=== PATIENT | male | born 1985 | race Caucasian/White ===

== ENCOUNTER 2021-08-15 12:30 | Inpatient (IN) | payer OTHER, SELFPAY ==
[2021-08-15] VITALS (9 sets, daily range): BP systolic 115–135; BP diastolic 50–77; PULSE 109–121; RESP 18–21; TEMP 37.3–39.5; O2SAT 97–100; BMI 38.9
--- NOTE | ~2021-08-15 | CT_ITS ---
EXAMINATION: CT abdomen pelvis w con EXAM DATE: 08/15/2021 15:12 INDICATION: Abdominal pain. TECHNIQUE: Spiral CT of the abdomen and pelvis was performed following intravenous injection of 100 m L Omnipaque 350. Axial, coronal and sagittal images of the abdomen and pelvis were reviewed. The do se-length product (DLP) for this examination was 1538.31 mGy-cm. The exposure was tailored according to patient size (auto mA exposure control), and iterative reconstruction (ASIR) was used as addition al dose reduction technique. There is no prior study for comparison. FINDINGS: The liver, spleen, adrenal glands and pancreas are unremarkable. Gallbladder is unremarkab le. No biliary obstruction. There is no nephrolithiasis or hydronephrosis. The prostate is unrema rkable. The bladder is unremarkable. There is no retroperitoneal or pelvic lymphadenopathy. There is mild ill-defined hazy fat surrounding the sigmoid colon with mild scattered colonic divertic brad. Could be mild uncomplicated acute diverticulitis or colitis. The appendix is normal. There is a moderate to large gastroesophageal hiatal hernia. 3 cm duodenal diverticulum. No free intraperitonea l gas. The heart is normal in size. There are no pericardial or pleural effusions. The lung bases are unremarkable. There are no osteoblastic or osteolytic lesions identified. IMPRESSION: 1. Hazy perisigmoid fat stranding, could be mild colitis or uncomplicated diverticulitis. 2. Moderate to large gastroesophageal hiatal hernia. 3. 2. Duodenal diverticulum. Reviewed, dictated and finalized at location . [facility] IMPRESSION: 1. Hazy perisigmoid fat stranding, could be mild colitis or uncomplicated dive rticulitis. 2. Moderate to large gastroesophageal hiatal hernia. 3. 2. Duodenal diverticulum.
[2021-08-15 14:41] LABS: Basophils Absolute Auto 0.1 K/mm3 (0.0-0.1); Basophils Percent Auto 0.5 % (0.2-1.2); Eosinophils Percent Auto 0.2 % (0-4.4); Hematocrit 36.4 % (42.0-52.0); Hemoglobin 10.2 g/dL (14.0-18.0); Immature Granulocyte Absolute 0.07 K/mm3 (0.00-0.031); Immature Granulocyte Percent A 0.6 % (0-0.5); Lymphocytes Absolute Auto 0.57 K/mm3 (0.9-3.2); Lymphocytes Percent Auto 4.7 % (18.3-44.2); Mean Corpuscular Volume 71.2 fl (80-100); Mean Platelet Volume 9.7 fl (7.4-10.4); Monocytes Percent Auto 8.5 % (2.6-8.5); Neutrophils Absolute Auto 10.4 K/mm3 (1.3-6.7); Neutrophils Percent Auto 85.5 % (45.5-73.1); Platelet Count Result 337 k/mm3 (150-375); Red Blood Count 5.11 M/mm3 (4.6-6.20); Red Cell Distribution Width 18.6 % (11.5-14.5); White Blood Count 12.2 K/mm3 (4.5-10.0)
[2021-08-15 14:42] LABS: Lactic Acid Reflex 1.2 mmol/L (0.7-2.1)
[2021-08-15 14:43] LABS: Alanine Aminotransferase 21 U/L (4-50); Albumin Level 4.1 g/dL (3.5-5.1); Alkaline Phosphatase 84 U/L (38-126); Anion Gap 10 mmol/L (8-16); Aspartate Amino Transferase 24 U/L (17-59); Bilirubin,Total 0.8 mg/dL (0.2-1.3); Blood Urea Nitrogen 10 mg/dL (9-20); Calcium 9.3 mg/dL (8.4-10.2); Carbon Dioxide 24 mmol/L (22-30); Chloride 102 mmol/L (98-107); Estimated CRCL calculation 109 ml/min; Estimated Glomerular Filt Rate > 60; Glucose 123 mg/dL (65-110); Lipase 146 U/L (23-300); Potassium 4.1 mmol/L (3.4-5.0); Sodium 136 mmol/L (137-145)
--- NOTE | 2021-08-15 14:52 | ED.GENADULT ---
HPI - General Adult General Chief complaint: Abdominal Pain Stated complaint: abdominal pain Time Seen by Provider: 08/15/21 14:27 Source: patient and RN notes reviewed History of Present Illness HPI narrative: Patient is a 36 y/o male complaining of periumbilical abdominal pain starting about 6 days ago. He describes her pain as aching and rates it as 8/10. There is no alleviating or exacerbating factor. There is no pain radiation. He has some nausea, but no vomiting. He also has some diarrhea. He also has a fever. Related Data Home Medications Medication Instructions Recorded Confirmed No Home Medications 08/15/21 08/15/21 Allergies Allergy/AdvReac Type Severity Reaction Status Date / Time No Known Allergies Allergy Mild Verified 02/26/17 14:40 Review of Systems Constitutional: Constitutional: Denies chills, Reports fever(s), Denies headache(s) and Denies weakness Eyes: Eyes: Denies blurry vision ENT: Denies headache(s) and Denies neck pain Cardiovascular: Cardiovascular: Denies chest pain and Denies dyspnea Respiratory: Respiratory: Denies cough and Denies dyspnea Gastrointestinal: Gastrointestinal: Reports abdominal pain, Reports diarrhea, Denies nausea and Denies vomiting Genitourinary: Genitourinary: Denies hematuria and Denies dysuria Musculoskeletal: Musculoskeletal: Denies back pain and Denies neck pain Neurologic: Denies headache(s) and Denies weakness [facility]LY [facility] Social History Social History Smoking status: Never smoker Alcohol intake: current Exam Const: General: no acute distress and well developed Orientation/consciousness: oriented to person, oriented to place, oriented to time and patient oriented x3 HENMT: Head: normocephalic Ears: external ears normal General nose exam: Normal external nose present Eyes: General: appearance normal, both eyes and all related structures Conjunctivae: conjunctivae normal Neck: Neck: normal visual inspection and full ROM Chest: Chest palpation & inspection: normal inspection of the chest and no tenderness Resp: Effort & Inspection: normal respiratory effort Auscultation: clear to auscultation bilaterally Cardio: Rate: tachycardic Rhythm: regular rhythm GI: GI Palp: No abdominal tenderness and Yes Soft to palpation Skin: General skin exam: normal color and turgor normal Neuro: General: oriented to person, oriented to place, oriented to time and patient oriented x3 Cognition (Neuro): normal cognition Extrem: General: normal to inspection, full ROM and no pedal edema Psych: Appearance: grossly normal Mental Status: mental status grossly normal Affect: normal affect Course Consultations Consultation #1: Discussed with OMAR Valencia, who agrees to admit. Date: 08/15/21 Time: 18:33 Vital Signs Vital signs: Vital Signs Temperature 39.4 C H 08/15/21 12:59 Pulse Rate 119 H 08/15/21 12:59 Respiratory Rate 20 08/15/21 12:59 Blood Pressure 135/64 08/15/21 12:59 Pulse Oximetry 99 08/15/21 12:59 Temperature 39.1 C H 08/15/21 20:24 Pulse Rate 110 H 08/15/21 20:24 Respiratory Rate 21 H 08/15/21 20:24 Blood Pressure 119/66 08/15/21 20:24 Pulse Oximetry 97 08/15/21 20:24 Medical Decision Making Vital Signs Vital Signs: Vital Signs Temperature 39.4 C H 08/15/21 12:59 Pulse Rate 119 H 08/15/21 12:59 Respiratory Rate 20 08/15/21 12:59 Blood Pressure 135/64 08/15/21 12:59 Pulse Oximetry 99 08/15/21 12:59 Temperature 39.1 C H 08/15/21 20:24 Pulse Rate 110 H 08/15/21 20:24 Respiratory Rate 21 H 08/15/21 20:24 Blood Pressure 119/66 08/15/21 20:24 Pulse Oximetry 97 08/15/21 20:24 Lab Data Result diagrams: 08/15/21 14:26 08/15/21 14:26 Labs: Lab Results 08/15/21 08/15/21 08/15/21 Range/Units 14:26 14:26 14:26 WBC 12.2 H (4.5-10.0) K/mm3 RBC 5.11 (4.6-6.20) M/mm3 Hgb 10.2 L (14
--- NOTE | 2021-08-15 15:00 | PC.NURSE ---
Called lab to add on Lip @ [id number]
[2021-08-15] MEDS: SODIUM CHLORIDE 0.9% IV 1,000 ML 999 ML IV CONT (15:01)
[2021-08-15] MEDS: ACETAMINOPHEN 325 MG TABLET 650 MG PO (15:02)
[2021-08-15 15:16] LABS: Lipase 145 U/L (23-300)
[2021-08-15 15:21] LABS: Platelet Estimate Adequate (Adequate)
[2021-08-15 15:22] LABS: Anisocytosis 1+ (NORMAL); Hypochromasia 1+ (NORMAL); Stomatocytes 1+ (NORMAL)
[2021-08-15 16:39] LABS: Add Urine Microscopic? NO; Appearance Urine Clear (Clear); Bilirubin Urine Negative (Negative); Blood Urine Negative (Negative); Color Urine Yellow (Yellow); Glucose Urine UA Negative (Negative); Ketones Urine Negative (Negative); Leukocyte Esterase Ur Negative LEU/UL (Negative); Nitrate Urine Negative (Negative); Protein Urine Negative (Negative); Urobilinogen Urine Negative mg/dL (<2.0)
[2021-08-15 17:14] LABS: Specific Grav Ur > 1.060 (1.001-1.035)
[2021-08-15] MEDS: ONDANSETRON INJ 4 MG/2 ML VIAL IV PUSH (17:54)
[2021-08-15] MEDS: KETOROLAC 30 MG/ML VIAL (*BKC) IV PUSH (17:55)
--- NOTE | 2021-08-15 17:56 | ECG_ITS ---
Measurements Intervals Stopover Rate: 120 P: 18 AL: 152 QRS: 17 QRSD: 106 T: 49 QT: 312 QTc: 441 Interpretive Statements S[address]US T[address] ELEVATION IN DIFFUSE LEADS- PROBABLY EARLY REPOLARIZATION ABNORMALITY BASELINE ARTIFACT- II, III, AVR, AVL, AVF, V2-V6 ABNORMAL ECG Electronically Signed On 08-15-2021 20:09:00 [employer] by Kg Pettit D.O.
[2021-08-15] MEDS: metroNIDAZOLE 500 MG/ISO 100ML 500 MG/100 ML BAG 100 MG IVPB (18:19)
--- NOTE | 2021-08-15 18:46 | PC.NURSE ---
Called lab to add on Trop Baseline.
--- NOTE | 2021-08-15 19:16 | PC.NURSE ---
Report received from JORDIN Herrera. Assumed care of patient at this time.
[2021-08-15] MEDS: CIPROFLOXACIN 400 MG/D5W 200ML 200 ML 200 MG IVPB (19:32)
[2021-08-15 19:35] LABS: EDCOVIDSCREEN Negative (Negative)
--- NOTE | 2021-08-15 20:38 | PM.IMHP ---
H&P: HPI History of Present Illness Date/Time: 08/15/21 20:38 this is a 36-year-old male patient who is complaining of pain around his periumbilical area. This started 6 days ago. The patient does have a history of diverticulosis. The patient has been eating seeds and nuts and he knows that he should not be eating these things. The patient had 2 loose stools today. He did have a fever as well. He has had some nausea but no vomiting. His white count was noted to be 12.12. H&H is 10.2 and 36.4. Patient was found to be negative for COVID. The patient's CT scan was read as hazy. Sigmoid fat stranding could be mild colitis or uncomplicated diverticulitis. Moderate to large gastroesophageal hiatal hernia. Duodenal diverticulum. The patient was started on Cipro and Flagyl. The patient was started on IV fluids, Tylenol, Zofran, Toradol, Flagyl and Cipro. The patient is being admitted to observation status on the date of service of 06/15/2022 Chief Complaint: Abdominal pain Review of Systems Review of Systems: All systems reviewed & are unremarkable except as noted in HPI and below Constitutional: Constitutional: Reports as per HPI and Reports no additional constitutional complaints Eyes: Eyes: Reports as per HPI and Reports no additional eye complaints ENT: Reports system reviewed and no additional complaints, except as documented and Reports Normal hearing present Cardiovascular: Cardiovascular: Reports no additional cardiovascular complaints Respiratory: Respiratory: Reports no additional respiratory complaints and Reports no additional respiratory complaints Gastrointestinal: Gastrointestinal: Reports as per HPI and Reports no additional gastrointestinal complaints Musculoskeletal: Musculoskeletal: Reports no additional musculoskeletal complaints Integumentary/Breasts: Skin/Breast: Reports system reviewed and no additional complaints, except as docu and Reports as per HPI Neurologic: Reports system reviewed and no additional complaints, except as documented, Reports as per HPI and Reports Normal hearing present Psychiatric: Psychiatric: Reports no additional psychiatric complaints and Reports as per HPI Endocrine: Endocrine: Reports no additional endocrine complaints Hematologic/Lymphatic: Hematologic/Lymphatic: Reports no additional hematologic/lymphatic complaints Allergic/Immunologic: Allergic/Immunologic: Reports no additional allergic/immunologic complaints PMFSH Past Medical History Medical History (Updated 08/15/21 @ 23:28 by Annie Hunter NP) Diverticulosis Surgical History Surgical History (Updated 08/15/21 @ 23:28 by Annie Hunter NP) History of tonsillectomy Family History Family History Father Asthma Chronic obstructive pulmonary disease Hypertension Mother Hypertension Social History Social History (Updated 08/15/21 @ 23:30 by Annie Hunter NP) Social History: The patient is lifelong nonsmoker. He lives with his significant other. He has 2 sons. He does not have a durable power transactional attorney for healthcare. He drinks socially. He works at [employer]. He does not use any marijuana or illicit drugs. Code status full code Smoking status: Never smoker Alcohol intake: never Substance use: never Spiritual care concerns: No Meds Home Medications and Allergies Home Medications Medication Instructions Recorded Confirmed Type No Home Medications 08/15/21 08/15/21 History Allergies Allergy/AdvReac Type Severity Reaction Status Date / Time No Known Allergies Allergy Mild Verified 02/26/17 14:40 Vital Signs Vital Signs - 24 hr 08/15/21 12:59 08/15/21 14:23 08/15/21 15:48 Temperature 39.4 C H 37.3 C Pulse Rate 119 H 121 H Respiratory Rate 20 18 Blood Pressure 135/64 125/77 Pulse Oximetry 99 98 08/15/21 15:59 08/15/21 17:31 08/15/21 18:45 Temperature 39.4 C
[2021-08-15 20:59] LABS: Troponin I < 0.012 ng/mL (0.000-0.034)
[2021-08-15] MEDS: SODIUM CHLORIDE 0.9% IV 1,000 ML 125 ML IV CONT (20:59)
--- NOTE | 2021-08-15 21:07 | ADMGEN ---
This patient, Isiah Franco, was admitted to Medical Room 249-01. Patient/family oriented to hospital policies and general routines including ID bracelet, bed and alarms, visiting hours, pain management, procedures, bathroom and other care routines, personal items, smoking policy, room service/diet, and visiting hours. Information on how to activate the Rapid Response Team has been discussed. Patient/Family are encouraged to report perceived risks to care and to ask questions if they do not understand what they are told or what they should do.
[2021-08-16] MEDS: metroNIDAZOLE 500 MG/ISO 100ML 500 MG/100 ML BAG 100 MG IVPB ×3 (02:02→17:53)
[2021-08-16 02:56] LABS: IFOB Positive Control Positive; Immunochemical Fecal Occult Bl Positive (N)
[2021-08-16] MEDS: ONDANSETRON INJ 4 MG/2 ML VIAL IV PUSH ×5 (03:08→22:32)
[2021-08-16 05:40] LABS: Hematocrit 31.1 % (42.0-52.0); Mean Corpuscular HGB Conc 28.9 g/dl (32-36); Mean Corpuscular Hemoglobin 20.3 pg (26-34); Mean Platelet Volume 9.7 fl (7.4-10.4); Platelet Count Result 306 k/mm3 (150-375); Red Blood Count 4.44 M/mm3 (4.6-6.20); Red Cell Distribution Width 18.5 % (11.5-14.5); White Blood Count 14.2 K/mm3 (4.5-10.0)
[2021-08-16 05:59] LABS: Alanine Aminotransferase 16 U/L (4-50); Albumin Level 3.5 g/dL (3.5-5.1); Alkaline Phosphatase 66 U/L (38-126); Anion Gap 10 mmol/L (8-16); Aspartate Amino Transferase 19 U/L (17-59); Bilirubin,Total 1.2 mg/dL (0.2-1.3); Blood Urea Nitrogen 15 mg/dL (9-20); Calcium 8.3 mg/dL (8.4-10.2); Carbon Dioxide 22 mmol/L (22-30); Chloride 103 mmol/L (98-107); Estimated CRCL calculation 85 ml/min; Estimated Glomerular Filt Rate 57; Glucose 125 mg/dL (65-110); Lactate Dehydrogenase 340 U/L (313-618); Lipase 47 U/L (23-300); Magnesium 1.4 mg/dL (1.6-2.3); Potassium 3.6 mmol/L (3.4-5.0); Sodium 135 mmol/L (137-145)
[2021-08-16 06:00] VITALS: BP 123/72; PULSE 107; RESP 21; TEMP 36.4; O2SAT 100
[2021-08-16 06:10] LABS: Lactic Acid Reflex 0.8 mmol/L (0.7-2.1)
[2021-08-16] MEDS: SODIUM CHLORIDE 0.9% IV 1,000 ML 125 ML IV CONT (06:17)
[2021-08-16 06:46] LABS: Thyroid Stimulating Hormone Reflex 0.631 uIU/mL (0.465-4.68)
[2021-08-16 07:00] LABS: Band Neutrophils Percent 17 % (0-6); Microcytosis 2+ (NORMAL); Monocytes Absolute Manual 0.99 K/mm3 (0.1-0.90); Monocytes Percent Manual 7 % (3-9); Neutrophils Percent Manual 64 % (46-73); Platelet Estimate Adequate (Adequate); Total Cells Counted 100
[2021-08-16 07:01] LABS: Hypochromasia 1+ (NORMAL)
[2021-08-16] MEDS: POTASSIUM CHLORIDE 20 MEQ TABLET 40 MEQ PO (09:03)
[2021-08-16] MEDS: ACETAMINOPHEN 325 MG TABLET 650 MG PO ×4 (09:04→23:56)
[2021-08-16] MEDS: CIPROFLOXACIN 400 MG/D5W 200ML 200 ML 200 MG IVPB ×2 (09:05→22:16)
[2021-08-16 09:14] LABS: Iron 21 ug/dL (49-181)
[2021-08-16 09:22] LABS: Transferrin 268 mg/dL (206-381)
[2021-08-16 09:25] LABS: Percent Iron Saturation 6 % (20-50)
[2021-08-16] MEDS: MAGNESIUM SULF 4 GM/WATER100ML 4 GM/100 ML BAG IVPB (10:19)
[2021-08-16] MEDS: PANTOPRAZOLE SODIUM IV 40 MG VIAL IV PUSH ×2 (10:19→22:17)
--- NOTE | 2021-08-16 12:18 | WPDGICN ---
Assessment and Plan Assessment and plan (1) Diverticulitis: Code(s): K57.92 - Diverticulitis of intestine, part unspecified, without perforation or abscess without bleeding Status: Acute Assessment and Plan: here with possible colitis vs diverticulitis (denies previous episode) stool sample pending started on iv antibiotics tolerating liquid diet (2) Sepsis: Qualifiers: Sepsis acute organ dysfunction status: unspecified Sepsis type: sepsis due to unspecified organism Qualified Code(s): A41.9 - Sepsis, unspecified organism Code(s): A41.9 - Sepsis, unspecified organism Status: Acute Assessment and Plan: here with elevated wbc, colitis and fever will monitor and treat (3) Iron deficiency anemia: Code(s): D50.9 - Iron deficiency anemia, unspecified Status: Acute Assessment and Plan: new finding, never had scopes will arrange egd and colonoscopy probably in 3-4 weeks after resolution of acute inflammation patient denies overt gib but noted FOBT + (also could be from active colon infection) (4) Occult blood in stools: Code(s): R19.5 - Other fecal abnormalities Status: Acute (5) Abnormal CT scan, colon: Code(s): R93.3 - Abnormal findings on diagnostic imaging of other parts of digestive tract Status: Acute Assessment and Plan: reviewed (6) Leukocytosis: Code(s): D72.829 - Elevated white blood cell count, unspecified Status: Acute Assessment and Plan: on abx GI Consult Note Consult date/time: 08/16/21 12:19 Reason for consult: diverticulitis vs colitis, FOBT + HPI: Isiah Franco is a 36 year old male with lower abdominal pain for last 5-6 days describe as moderate intensity, also bloating sensation and mucus in stool with nausea but no vomiting, finally came to ER because more pain and fever 103F, also noted more diarrhea day of admission. Denies sick contacts or similar GI problem. CT scan a/p reviewed and showed hazy perisigmoid fat stranding, could be mild colitis or uncomplicated diverticulitis, moderate to large gastroesophageal hiatal hernia. Never had scopes. Blood work showed white count 12.12, hb 10.2. Patient was found to be negative for COVID. Started on antibiotics, pending stool samples. Review of Systems Constitutional: Constitutional: Reports chills Comments: fever Eyes: Eyes: Denies blurry vision ENT: Reports Normal hearing present Cardiovascular: Cardiovascular: Denies chest pain Respiratory: Respiratory: Denies dyspnea Gastrointestinal: Gastrointestinal: Reports abdominal pain and Reports diarrhea Genitourinary: Genitourinary: Denies dysuria Musculoskeletal: Musculoskeletal: Denies neck pain Integumentary/Breasts: Skin/Breast: Denies dry skin Neurologic: Denies headache(s) Psychiatric: Psychiatric: Denies behavioral changes [facility] Past Medical History Medical History (Updated 08/16/21 @ 13:04 by Leonardo Slade MD) Abnormal CT scan, colon Diverticulosis Iron deficiency anemia Leukocytosis Occult blood in stools Surgical History Surgical History (Updated 08/15/21 @ 23:28 by Annie Hunter NP) History of tonsillectomy Family History Family History Father Asthma Chronic obstructive pulmonary disease Hypertension Mother Hypertension Social History Social History (Updated 08/15/21 @ 23:30 by Annie Hunter NP) Social History: The patient is lifelong nonsmoker. He lives with his significant other. He has 2 sons. He does not have a durable power managing attorney for healthcare. He drinks socially. He works at [employer]. He does not use any marijuana or illicit drugs. Code status full code Smoking status: Never smoker Alcohol intake: never Substance use: never Spiritual care concerns: No Meds Home Medications and Allergies Home Medications Medi
--- NOTE | 2021-08-16 13:05 | PM.IMPN ---
Progress Note: A&P Assessment and Plan (1) Diverticulitis: Code(s): K57.92 - Diverticulitis of intestine, part unspecified, without perforation or abscess without bleeding Status: Acute Assessment and Plan: Patient is a 36-year-old male with a history of diverticulosis, who presented to the emergency room with periumbilical abdominal pains, with gradually worsening symptoms over the last 6 days with associated fevers. Initial vitals showed blood pressure 135/64, tachycardic heart rate 119, febrile 102.9F, normal oxygenation on room air. Initial labs showed leukocytosis at 12,200, elevated neutrophils at 85%. Microcytic anemia with a hemoglobin of 10, hematocrit 36%. Normal renal function. Lactic acid normal. LFTs normal. Troponin normal. Lipase normal. TSH, B12, folic acid normal. Positive occult blood. Negative COVID PCR. Normal urinalysis. CT abdomen pelvis showed Hazy perisigmoid fat stranding, could be mild colitis or uncomplicated diverticulitis. Moderate to large gastroesophageal hiatal hernia. Duodenal diverticulum. Patient was admitted to the hospital for acute diverticulitis and started on IV Flagyl and Cipro. Patient states he is feeling slightly better today, Day #1 Cipro and Flagyl Stools are improving-stool cultures are pending He is eating better so I discontinued IV fluids GI was consulted due to microcytic anemia, positive blood in stool, diverticulitis and moderate to severe hiatal hernia Will continue IV PPI 40 mg q.12 Continue monitoring. Appreciate GI input. (2) Sepsis: Code(s): A41.9 - Sepsis, unspecified organism Status: Acute Assessment and Plan: Patient meets criteria for sepsis with fevers, tachycardia, leukocytosis, in the setting of diverticulitis. Continue monitoring vitals and IV abx. (3) Iron deficiency anemia: Code(s): D50.9 - Iron deficiency anemia, unspecified Status: Acute Assessment and Plan: Patient found to have iron deficiency anemia with a hemoglobin of 9, hematocrit 31%. Positive Hemoccult stool. % saturation 6%, low ferritin. GI was consulted. Continue monitoring H&H and transfuse if less than 7. (4) Occult blood in stools: Code(s): R19.5 - Other fecal abnormalities Status: Acute Assessment and Plan: GI on board and appreciate the recommendations. (5) Hypomagnesemia: Code(s): E83.42 - Hypomagnesemia Status: Acute Assessment and Plan: Low at 1.4. Given 4 g of IV magnesium. Most likely due to IV fluid hydration. Time Spent With Patient Time with patient: 25 - 35 minutes Subjective Date/time seen: 08/16/21 13:05 Interval history: Date of Service 08/16/21: Patient reports feeling slightly better. States his diarrhea is improving minimally with about 5-6 stools before noon. Denies any more fevers at this time. He has been eating a full liquid diet and does become slightly nauseous after eating had episode of vomiting after lunch. He is otherwise tolerating diet without any issues. Denies any chest pain, shortness of breath, cough, leg swelling, calf pain, or any other symptoms at this time. Review of Systems Review of Systems: All systems reviewed & are unremarkable except as noted in HPI and below Exam Narrative: General: 36-year-old man sitting up in bed watching TV. Appears comfortable. In no acute distress. Skin: No jaundice or cyanosis. Good skin turgor. Neck: Full range of motion. Supple. Respiratory: Lungs are clear to auscultation bilaterally. No bony chest wall tenderness. Cardiovascular: The heart has a regular rate and rhythm without murmur. Lower extremities: No lower extremity edema. Distal pulses are easily palpated
[2021-08-16 14:00] VITALS: BP 127/75; PULSE 107; RESP 14; TEMP 38.4; O2SAT 96
[2021-08-16 15:55] VITALS: TEMP 36.8
[2021-08-16 19:00] VITALS: TEMP 37.3
[2021-08-16 20:20] VITALS: PULSE 100; RESP 14; O2SAT 99
[2021-08-16 21:09] VITALS: BP 127/79; PULSE 100; RESP 14; TEMP 37.3; O2SAT 99
[2021-08-17] MEDS: metroNIDAZOLE 500 MG/ISO 100ML 500 MG/100 ML BAG 100 MG IVPB ×2 (03:04→11:17)
[2021-08-17 05:13] LABS: Basophils Absolute Auto 0.1 K/mm3 (0.0-0.1); Basophils Percent Auto 0.5 % (0.2-1.2); Eosinophils Percent Auto 0.2 % (0-4.4); Hematocrit 33.8 % (42.0-52.0); Hemoglobin 9.4 g/dL (14.0-18.0); Immature Granulocyte Absolute 0.11 K/mm3 (0.00-0.031); Lymphocytes Absolute Auto 0.87 K/mm3 (0.9-3.2); Lymphocytes Percent Auto 7.7 % (18.3-44.2); Mean Corpuscular HGB Conc 27.8 g/dl (32-36); Mean Corpuscular Hemoglobin 19.9 pg (26-34); Mean Corpuscular Volume 71.6 fl (80-100); Mean Platelet Volume 9.8 fl (7.4-10.4); Monocytes Absolute Auto 1.2 K/mm3 (0.1-0.6); Monocytes Percent Auto 10.2 % (2.6-8.5); Neutrophils Absolute Auto 9.1 K/mm3 (1.3-6.7); Neutrophils Percent Auto 80.4 % (45.5-73.1); Platelet Count Result 279 k/mm3 (150-375); Red Blood Count 4.72 M/mm3 (4.6-6.20); Red Cell Distribution Width 18.3 % (11.5-14.5); White Blood Count 11.3 K/mm3 (4.5-10.0)
[2021-08-17 05:47] LABS: Anion Gap 9 mmol/L (8-16); Blood Urea Nitrogen 10 mg/dL (9-20); Calcium 8.3 mg/dL (8.4-10.2); Carbon Dioxide 23 mmol/L (22-30); Chloride 104 mmol/L (98-107); Estimated CRCL calculation 118 ml/min; Estimated Glomerular Filt Rate > 60; Glucose 121 mg/dL (65-110); Magnesium 2.5 mg/dL (1.6-2.3); Potassium 3.9 mmol/L (3.4-5.0); Sodium 136 mmol/L (137-145)
[2021-08-17 06:00] VITALS: BP 123/71; PULSE 100; RESP 16; TEMP 36.4; O2SAT 97
[2021-08-17] MEDS: CIPROFLOXACIN 400 MG/D5W 200ML 200 ML 200 MG IVPB ×2 (08:29→20:19)
[2021-08-17] MEDS: PANTOPRAZOLE SODIUM IV 40 MG VIAL IV PUSH ×2 (08:29→20:19)
[2021-08-17] MEDS: ONDANSETRON INJ 4 MG/2 ML VIAL IV PUSH (08:40)
--- NOTE | 2021-08-17 13:49 | WPDGIPROGNO ---
Progress Note: A&P Assessment and Plan (1) Salmonellosis: Code(s): A02.9 - Salmonella infection, unspecified Status: Acute Assessment and Plan: stool culture + Salmonella already on cipro, will discontinue flagyl he is feeling better with less diarrhea (2) Diarrhea: Code(s): R19.7 - Diarrhea, unspecified Status: Acute Assessment and Plan: slowly improving, still some pain (3) Sepsis: Code(s): A41.9 - Sepsis, unspecified organism Status: Acute Assessment and Plan: resolved, wbc trending down (4) Abnormal CT scan, colon: Code(s): R93.3 - Abnormal findings on diagnostic imaging of other parts of digestive tract Status: Acute (5) Iron deficiency anemia: Code(s): D50.9 - Iron deficiency anemia, unspecified Status: Acute Assessment and Plan: will need egd and colonoscopy, probably in 4 weeks after fully recovered Subjective Date/time seen: 08/17/21 13:49 Interval history: pain is improving and also less diarrhea but still not back to normal. Review of Systems Review of Systems: All systems reviewed & are unremarkable except as noted in HPI and below Exam Const: General: comfortable and no acute distress HENMT: General nose exam: Normal nares present Eyes: General: appearance normal, both eyes and all related structures Neck: Neck: no JVD Resp: Auscultation: clear to auscultation bilaterally Cardio: Rate: regular rate Rhythm: regular rhythm GI: Inspection: non-distended GI Palp: Yes Soft to palpation Auscultation: normal bowel sounds Other: less tender today Skin: General skin exam: normal color Neuro: General: gait normal Speech: normal speech Extrem: General: normal to inspection Psych: Mental Status: mental status grossly normal Objective Data Vital Signs Vital Signs: Vital Signs - 24 hr 08/16/21 14:00 08/16/21 15:55 08/16/21 19:00 Temperature 101.1 F H 98.3 F 99.1 F Pulse Rate 107 H Respiratory Rate 14 Blood Pressure 127/75 Pulse Oximetry 96 08/16/21 20:20 08/16/21 21:09 08/17/21 06:00 Temperature 99.1 F 97.5 F L Pulse Rate 100 100 100 Respiratory Rate 14 14 16 Blood Pressure 127/79 123/71 Pulse Oximetry 99 99 97 Intake/Output Intake/Output: Intake & Output 08/14/21 08/15/21 08/16/21 08/17/21 23:59 23:59 23:59 23:59 Intake Total 1300 4230 1935 Output Total 500 Balance 1300 3730 1935 Meds/Results Medications: Active Medications Generic Name Dose Route Start Last Admin Trade Name Freq PRN Reason Stop Dose Admin Acetaminophen 650 mg 08/16/21 08:30 08/16/21 23:56 Acetaminophen 325 Mg Tablet PO 650 mg Q4H PRN Administration Mild Pain (1-3) or Fever Ciprofloxacin/Dextrose 200 mls @ 200 mls/hr 08/16/21 09:00 08/17/21 09:29 Cipro 400 Mg/D5w 200 Ml IVPB Infused Q12H DEVYN Infusion Metronidazole 500 mg in 100 mls @ 100 mls/hr 08/16/21 02:00 08/17/21 12:20 Flagyl 500 Mg/Iso Soln 100 Ml IVPB Infused Q8H DEVYN Infusion Iron Sucrose 300 mg/ Sodium 115 mls @ 76.667 mls/hr 08/17/21 09:00 08/17/21 11:20 Chloride IVPB 08/19/21 09:01 Infused QAM DEVYN Infusion Ondansetron HCl 4 mg 08/15/21 23:17 08/17/21 08:40 Ondansetron Inj 4 Mg/2 Ml Vial IV PUSH 4 mg Q4H PRN Administration Nausea And Vomiting Pantoprazole Sodium 40 mg 08/16/21 09:00 08/17/21 08:29 Pantoprazole Sodium Iv 40 Mg Vial IV PUSH 40 mg Q12HR DEVYN Administration Radiology Results: ITS Impressions Abdomen/Pelvis CT 08/15/21 15:13 IMPRESSION: 1. Hazy perisigmoid fat stranding, could be mild colitis or uncomplicated diverticulitis. 2. Moderate to large gastroesophageal hiatal hernia. 3. 2. Duodenal diverticulum. Labs Labs: Laboratory Results - last 24 hr 08/17/21 08/17/21 04:38 04:38 WBC 11.3 H RBC 4.72 Hgb 9.4 L Hct 33.8 L MCV 71.6 L MCH 19.9 L MCHC 27.8 L RDW 18.3 H Plt Count 279
[2021-08-17 14:05] VITALS: BP 119/77; PULSE 99; RESP 16; TEMP 36.3; O2SAT 97
--- NOTE | 2021-08-17 14:48 | PM.IMPN ---
Progress Note: A&P Assessment and Plan (1) Diverticulitis: Code(s): K57.92 - Diverticulitis of intestine, part unspecified, without perforation or abscess without bleeding Status: Acute Assessment and Plan: Patient is a 36-year-old male with a history of diverticulosis, who presented to the emergency room with periumbilical abdominal pains, with gradually worsening symptoms over the last 6 days with associated fevers. Initial vitals showed blood pressure 135/64, tachycardic heart rate 119, febrile 102.9F, normal oxygenation on room air. Initial labs showed leukocytosis at 12,200, elevated neutrophils at 85%. Microcytic anemia with a hemoglobin of 10, hematocrit 36%. Normal renal function. Lactic acid normal. LFTs normal. Troponin normal. Lipase normal. TSH, B12, folic acid normal. Positive occult blood. Negative COVID PCR. Normal urinalysis. CT abdomen pelvis showed Hazy perisigmoid fat stranding, could be mild colitis or uncomplicated diverticulitis. Moderate to large gastroesophageal hiatal hernia. Duodenal diverticulum. Patient was admitted to the hospital for acute diverticulitis and started on IV Flagyl and Cipro. Patient states he is feeling slightly better today, Day #2 Cipro and Flagyl Stool cultures- showing Growth of Salmonella. WBC Smear not detected. Shiga Toxins Ecoli not detected. Campylobacter not detected. GI was consulted and agree with treatment at this time, will do EGD.Colonoscopy outpatient in 3-4 wks. Believe +IFOB was due to acute infection/inflammation/diarrhea. Will continue IV PPI 40 mg q.12 Continue monitoring. Appreciate GI input. (2) Salmonellosis: Code(s): A02.9 - Salmonella infection, unspecified Status: Acute Assessment and Plan: Positive growth with stool cultures. Continue Cipro IV and at discharge. GI Discontinued IV Flagyl. (3) Sepsis: Code(s): A41.9 - Sepsis, unspecified organism Status: Acute Assessment and Plan: Patient meets criteria for sepsis with fevers, tachycardia, leukocytosis, in the setting of diverticulitis. Continue monitoring vitals and IV abx. (4) Iron deficiency anemia: Code(s): D50.9 - Iron deficiency anemia, unspecified Status: Acute Assessment and Plan: Patient found to have iron deficiency anemia with a hemoglobin of 9, hematocrit 31%. Positive Hemoccult stool. % saturation 6%, low ferritin. GI was consulted and believes it is from acute inflammation/infection. (5) Occult blood in stools: Code(s): R19.5 - Other fecal abnormalities Status: Acute Assessment and Plan: GI on board and appreciate the recommendations. (6) Hypomagnesemia: Code(s): E83.42 - Hypomagnesemia Status: Acute Assessment and Plan: Normal today. From diarrhea. Time Spent With Patient Time with patient: 25 - 35 minutes Subjective Date/time seen: 08/17/21 14:48 Interval history: Date of Service 08/17/21: Patient reports feeling slightly better. States his diarrhea is improving. Denies any more fevers at this time. He has been eating a full liquid diet and does become slightly nauseous, no vomiting. He is otherwise tolerating diet without any issues. Denies any chest pain, shortness of breath, cough, leg swelling, calf pain, or any other symptoms at this time. Review of Systems Review of Systems: All systems reviewed & are unremarkable except as noted in HPI and below Exam Narrative: General: 36-year-old man sitting up in bed watching TV. Appears comfortable. In no acute distress. Skin: No jaundice or cyanosis. Good skin turgor. Neck: Full range of motion. Supple. Respiratory: Lungs are
[2021-08-17] MEDS: ACETAMINOPHEN 325 MG TABLET 650 MG PO (17:42)
[2021-08-17 21:49] VITALS: BP 127/67; PULSE 88; RESP 16; TEMP 36.9; O2SAT 97
[2021-08-18 05:55] VITALS: BP 119/72; PULSE 83; RESP 16; TEMP 36.5; O2SAT 99
[2021-08-18 06:39] LABS: Basophils Absolute Auto 0.1 K/mm3 (0.0-0.1); Basophils Percent Auto 0.8 % (0.2-1.2); Eosinophils Absolute Auto 0.2 K/mm3 (0-0.3); Eosinophils Percent Auto 1.8 % (0-4.4); Hematocrit 30.4 % (42.0-52.0); Hemoglobin 8.5 g/dL (14.0-18.0); Immature Granulocyte Percent A 2.2 % (0-0.5); Lymphocytes Absolute Auto 1.17 K/mm3 (0.9-3.2); Lymphocytes Percent Auto 12.6 % (18.3-44.2); Mean Corpuscular Volume 71.7 fl (80-100); Mean Platelet Volume 10.1 fl (7.4-10.4); Monocytes Absolute Auto 1.1 K/mm3 (0.1-0.6); Monocytes Percent Auto 11.3 % (2.6-8.5); Neutrophils Absolute Auto 6.6 K/mm3 (1.3-6.7); Neutrophils Percent Auto 71.3 % (45.5-73.1); Platelet Count Result 285 k/mm3 (150-375); Red Blood Count 4.24 M/mm3 (4.6-6.20); Red Cell Distribution Width 18.4 % (11.5-14.5); White Blood Count 9.3 K/mm3 (4.5-10.0)
[2021-08-18 06:49] LABS: Anion Gap 8 mmol/L (8-16); Blood Urea Nitrogen 8 mg/dL (9-20); Calcium 8.6 mg/dL (8.4-10.2); Carbon Dioxide 26 mmol/L (22-30); Chloride 104 mmol/L (98-107); Estimated CRCL calculation 118 ml/min; Estimated Glomerular Filt Rate > 60; Glucose 111 mg/dL (65-110); Potassium 3.5 mmol/L (3.4-5.0); Sodium 138 mmol/L (137-145)
[2021-08-18 07:29] LABS: Hemoglobin A1C 5.6 % (<5.7)
[2021-08-18] MEDS: CIPROFLOXACIN 400 MG/D5W 200ML 200 ML 200 MG IVPB (09:04)
[2021-08-18] MEDS: PANTOPRAZOLE SODIUM IV 40 MG VIAL IV PUSH (09:05)
--- NOTE | 2021-08-18 11:21 | PM.DS ---
DS: Admitting Diagnosis Discharge Date 08/18/21 Admitting Diagnosis Abd pain/diarrhea DS: Discharge Diagnosis Discharge Diagnosis (1) Diverticulitis: Code(s): K57.92 - Diverticulitis of intestine, part unspecified, without perforation or abscess without bleeding Status: Acute Assessment and Plan: Patient is a 36-year-old male with a history of diverticulosis, who presented to the emergency room with periumbilical abdominal pains, with gradually worsening symptoms over the last 6 days with associated fevers. Initial vitals showed blood pressure 135/64, tachycardic heart rate 119, febrile 102.9F, normal oxygenation on room air. Initial labs showed leukocytosis at 12,200, elevated neutrophils at 85%. Microcytic anemia with a hemoglobin of 10, hematocrit 36%. Normal renal function. Lactic acid normal. LFTs normal. Troponin normal. Lipase normal. TSH, B12, folic acid normal. Positive occult blood. Negative COVID PCR. Normal urinalysis. CT abdomen pelvis showed Hazy perisigmoid fat stranding, could be mild colitis or uncomplicated diverticulitis. Moderate to large gastroesophageal hiatal hernia. Duodenal diverticulum. Patient was admitted to the hospital for acute diverticulitis and started on IV Flagyl and Cipro. Patient states he is feeling slightly better today, Day #3 Cipro and Flagyl Stool cultures- showing Growth of Salmonella. WBC Smear not detected. Shiga Toxins Ecoli not detected. Campylobacter not detected. GI was consulted and agree with treatment at this time, will do EGD.Colonoscopy outpatient in 3-4 wks. Believe +IFOB was due to acute infection/inflammation/diarrhea. GI discontinued IV Flagyl and recommends only Ciprofloxacin for discharge. Will discharge with total of 10 days of Cipro and probiotic to prevent diarrhea associate with antibiotic use. Follow up with PCP and GI. Return to ER warnings given. Patient understands and agrees the plan all questions answered. (2) Salmonellosis: Code(s): A02.9 - Salmonella infection, unspecified Status: Acute Assessment and Plan: Positive growth with stool cultures. Continue Cipro IV and at discharge. (3) Sepsis: Code(s): A41.9 - Sepsis, unspecified organism Status: Acute Assessment and Plan: Patient meets criteria for sepsis with fevers, tachycardia, leukocytosis, in the setting of diverticulitis. Vitals stable. (4) Iron deficiency anemia: Code(s): D50.9 - Iron deficiency anemia, unspecified Status: Acute Assessment and Plan: Patient found to have iron deficiency anemia with a hemoglobin of 9, hematocrit 31%. Positive Hemoccult stool. % saturation 6%, low ferritin. GI was consulted and believes it is from acute inflammation/infection. Will continue PO Ferrous Sulfate upon discharge and follow up with PCP and GI in regards to continue this medication or not. (5) Occult blood in stools: Code(s): R19.5 - Other fecal abnormalities Status: Acute Assessment and Plan: GI was consulted and believes it is from acute inflammation/infection. (6) Hypomagnesemia: Code(s): E83.42 - Hypomagnesemia Status: Acute Assessment and Plan: Normal today. From diarrhea. DS: Summary Hospital Course Hospital Course: See above Status at Discharge Cognitive/behavioral status at discharge: Stable, improved. Time Spent with Patient Time attestation: Total time spent providing and/or coordinating discharge services: 40 Time spent: Greater than 30 minutes Exam Narrative: General: 36-year-old man sitting up in bed watching TV. Appears comfortable. In no acute distress. Skin: No jaundice or cyanos
--- NOTE | 2021-08-18 11:56 | WPDGIPROGNO ---
Progress Note: A&P Assessment and Plan (1) Salmonellosis: Code(s): A02.9 - Salmonella infection, unspecified Status: Acute Assessment and Plan: stool culture + Salmonella already on cipro, he can go home and complete oral route, tolerating diet he is feeling better with less diarrhea (2) Diarrhea: Code(s): R19.7 - Diarrhea, unspecified Status: Acute Assessment and Plan: slowly improving, still some pain from salmonella (3) Sepsis: Code(s): A41.9 - Sepsis, unspecified organism Status: Acute Assessment and Plan: resolved, wbc today is normal (4) Abnormal CT scan, colon: Code(s): R93.3 - Abnormal findings on diagnostic imaging of other parts of digestive tract Status: Acute (5) Iron deficiency anemia: Code(s): D50.9 - Iron deficiency anemia, unspecified Status: Acute Assessment and Plan: will need egd and colonoscopy- will set up as outpatient 4-6 weeks Subjective Date/time seen: 08/18/21 11:56 Interval history: he is feeling better with less frequent diarrhea, abdominal pain better. Review of Systems Review of Systems: All systems reviewed & are unremarkable except as noted in HPI and below Exam Const: General: comfortable and no acute distress HENMT: General nose exam: Normal nares present Eyes: General: appearance normal, both eyes and all related structures Neck: Neck: no JVD Resp: Auscultation: clear to auscultation bilaterally Cardio: Rate: regular rate Rhythm: regular rhythm GI: Inspection: non-distended GI Palp: Yes Soft to palpation and No Guarding due to palpation present (GI) Auscultation: normal bowel sounds Skin: General skin exam: normal color Neuro: General: gait normal Speech: normal speech Extrem: General: normal to inspection Psych: Mental Status: mental status grossly normal Objective Data Vital Signs Vital Signs: Vital Signs - 24 hr 08/17/21 14:05 08/17/21 21:49 08/18/21 05:55 Temperature 97.4 F L 98.5 F 97.7 F Pulse Rate 99 88 83 Respiratory Rate 16 16 16 Blood Pressure 119/77 127/67 119/72 Pulse Oximetry 97 97 99 Intake/Output Intake/Output: Intake & Output 01/17/22 01/18/22 01/19/22 01/20/22 23:59 23:59 23:59 23:59 Intake Total 1300 4230 2775 820 Output Total 500 Balance 1300 3730 2775 820 Meds/Results Medications: Active Medications Generic Name Dose Route Start Last Admin Trade Name Freq PRN Reason Stop Dose Admin Acetaminophen 650 mg 08/16/21 08:30 08/17/21 17:42 Acetaminophen 325 Mg Tablet PO 650 mg Q4H PRN Administration Mild Pain (1-3) or Fever Ciprofloxacin/Dextrose 200 mls @ 200 mls/hr 08/16/21 09:00 08/18/21 10:04 Cipro 400 Mg/D5w 200 Ml IVPB Infused Q12H DEVYN Infusion Iron Sucrose 300 mg/ Sodium 115 mls @ 76.667 mls/hr 08/17/21 09:00 08/18/21 10:33 Chloride IVPB 08/19/21 09:01 100 mls/hr QAM DEVYN Administration Ondansetron HCl 4 mg 08/15/21 23:17 08/17/21 08:40 Ondansetron Inj 4 Mg/2 Ml Vial IV PUSH 4 mg Q4H PRN Administration Nausea And Vomiting Pantoprazole Sodium 40 mg 08/16/21 09:00 08/18/21 09:05 Pantoprazole Sodium Iv 40 Mg Vial IV PUSH 40 mg Q12HR DEVYN Administration Radiology Results: ITS Impressions Abdomen/Pelvis CT 08/15/21 15:13 IMPRESSION: 1. Hazy perisigmoid fat stranding, could be mild colitis or uncomplicated diverticulitis. 2. Moderate to large gastroesophageal hiatal hernia. 3. 2. Duodenal diverticulum. Labs Labs: Laboratory Results - last 24 hr 08/18/21 08/18/21 08/18/21 05:32 05:32 05:32 WBC 9.3 RBC 4.24 L Hgb 8.5 L Hct 30.4 L MCV 71.7 L MCH 20.0 L MCHC 28.0 L RDW 18.4 H Plt Count 285 MPV 10.1 Immature Gran % (Auto) 2.2 H Neut % (Auto) 71.3 Lymph % (Auto) 12.6 L Kaufman % (Auto) 11.3 H Eos % (Auto) 1.8 Baso % (Auto) 0.8 Lymph # (Auto) 1.17 Kaufman # (Auto) 1.1 H Eo
== END 2021-08-18 12:25 | disposition home or self-care (01) | DRG 872 ==
LOC: ANHED 14:41 → ANH2MED 19:58
PROVIDERS: Emergency Medicine; Nurse Practitioner; Physician Assistant; Admitting Provider Internal Medicine; Emergency Provider Emergency Medicine; Visit Provider Internal Medicine
DX: A41.9 Sepsis, unspecified organism (principal); A02.9 Salmonella infection, unspecified; K57.92 Diverticulitis of intestine, part unspecified, without perforation or abscess without bleeding; D50.9 Iron deficiency anemia, unspecified; E83.42 Hypomagnesemia; K44.9 Diaphragmatic hernia without obstruction or gangrene; Z20.822 Contact with and (suspected) exposure to COVID-19; Z28.21 Immunization not carried out because of patient refusal
CPT/HCPCS: 36415; 74177; 80048; 80053; 81003; 82274; 82607; 82728; 82746; 83036; 83540; 83550; 83605; 83615; 83690; 83735; 84443; 84466; 84484; 85025; 87015; 87045; 87077; 87181; 87186; 87269; 87272; 87324; 87426; 87427; 89055; 93005; 96361; 96365; 96367; 96375; 96376; 99285; A9270; C9113; C9803; G0378; J0131; J0744; J1756; J1885; J2405; J3475; J7030; Q9967

== ENCOUNTER 2023-01-15 12:10 | Emergency (ER) | payer OTHER, SELFPAY ==
[2023-01-15 12:29] VITALS: BP 146/79; PULSE 87; RESP 16; TEMP 36.6; O2SAT 100
--- NOTE | 2023-01-15 13:09 | ED.URI ---
HPI - URI/Sore Throat General Chief Complaint: Upper Respiratory Infection Stated Complaint: Sore Throat Time Seen by Provider: 01/15/23 13:09 History of Present Illness HPI Narrative: 37-year-old male presenting for complaint of sore throat and sensation of something stuck in his throat for about 3 days. Endorses 1 week of sinus congestion and ears itching. He denies difficulty swallowing or maintaining secretions. Denies shortness of breath, wheezing, nausea, vomiting, fevers or chills. Denies sick contacts. Not taking anything for symptoms. Related Data Allergies Allergy/AdvReac Type Severity Reaction Status Date / Time No Known Allergies Allergy Mild Verified 01/15/23 12:14 Review of Systems Review of Systems: CONSTITUTIONAL: Denies body aches, fever, chills, or sweats. EYES: Denies visual changes, redness, or discharge. ENT: Reports sore throat denies rhinorrhea, congestion, or otalgia. CARDIOVASCULAR: Denies chest pain, palpitations, or edema. RESPIRATORY: Denies dyspnea. GASTROINTESTINAL: Denies abdominal pain, nausea, vomiting, or diarrhea. SKIN: Denies rash, itching, or wounds. MUSCULOSKELETAL: Denies back pain, joint pain, or myalgia. NEUROLOGIC: Denies headache PMFSH Past Medical History Medical History Abnormal CT scan, colon Diarrhea Diverticulosis Iron deficiency anemia Leukocytosis Occult blood in stools Salmonellosis Surgical History Surgical History History of tonsillectomy Family History Family History Father Asthma Chronic obstructive pulmonary disease Hypertension Mother Hypertension Social History Social History Social History: The patient is lifelong nonsmoker. He lives with his significant other. He has 2 sons. He does not have a durable power disability attorney for healthcare. He drinks socially. He works at [employer]. He does not use any marijuana or illicit drugs. Code status full code Smoking status: Never smoker Alcohol intake: never Substance use: never Spiritual care concerns: No Exam Narrative: GENERAL: well-appearing, no acute distress. EYES: conjunctivae clear ENT: Mucous membranes moist. TM pearly erwin with normal light reflex bilaterally; no tragal tenderness. Oropharynx erythematous without lesions. Tonsils absent. No drooling, no hoarseness, no trismus, uvula midline. No tripod positioning, hot potato voice, or soft palate swelling. NECK: Supple. No lymphadenopathy CHEST: Clear to auscultation, breath sounds equal. No respiratory distress, speaks in full sentences. HEART: Regular rate and rhythm. No murmur heard. SKIN: Warm, dry, no rash. NEURO: Alert and oriented x3. Course Course Emergency Course: Patient is aware of diagnosis, understands and agrees to treatment plan. Anticipatory guidance given. Patient agrees to follow-up as directed and is aware of reasons to seek care at the emergency department. Portions of this record may have been created with voice recognition software Level of Care: Express Care Visit Vital Signs Vital signs: Vital Signs Temperature 98 F 01/15/23 12:29 Pulse Rate 87 01/15/23 12:29 Respiratory Rate 16 01/15/23 12:29 Blood Pressure 146/79 H 01/15/23 12:29 Pulse Oximetry 100 01/15/23 12:29 Oxygen Delivery Room Air 01/15/23 12:29 Temperature 98 F 01/15/23 12:29 Pulse Rate 87 01/15/23 12:29 Respiratory Rate 16 01/15/23 12:29 Blood Pressure 146/79 H 01/15/23 12:29 Pulse Oximetry 100 01/15/23 12:29 Oxygen Delivery Room Air 01/15/23 12:29 MDM - URI/Sore Throat MDM Narrative Medical decision making narrative: strep result reviewed with pt. Advise supportive treatments. Patient is appropriate for outpatient t
== END 2023-01-15 13:17 | disposition home or self-care (01) ==
PROVIDERS: Emergency Provider Nurse Practitioner Family
DX: J02.0 Streptococcal pharyngitis (principal)
CPT/HCPCS: 87880; 99213; G0463

== ENCOUNTER 2024-08-08 23:35 | Observation (INO) | payer OTHER, SELFPAY ==
--- NOTE | ~2024-08-08 | XR_ITS ---
EXAMINATION: XR chest 2V Exam Date/Time: 08/09/2024 0:02 PULMONARY FELLOW HISTORY: syncope Comparison: None. RESULT: Lines, tubes, and devices: None. Lungs and pleura: Clear. Cardiomediastinal silhouette: Large hiatal hernia, otherwise unremarkable. Other: No acute osseous or upper abdominal finding. IMPRESSION: No acute cardiopulmonary process. Reviewed, dictated and finalized at location K. ONARY FELLOW
--- NOTE | ~2024-08-08 | CT_ITS ---
EXAMINATION: CTA chest PE protocol DATE: 08/09/2024 07:56 INDICATION: Syncope TECHNIQUE: Computed tomography angiography (CTA) of the chest was performed with 100 mL Omnipaque-350 intravenous contrast timed to evaluate the pulmonary arteries. Coronal maximum intensity projection 3D-reconstructions were created by the technologist. Automated exposure control and iterative reconst ruction technique were employed. Exam dose: 928.38 mGy-cm total exam DLP. COMPARISON: None. FINDINGS: There is diagnostic contrast enhancement of the pulmonary arteries and no evidence of pulmo nary embolism. No hilar or mediastinal mass lesion or lymphadenopathy. No thoracic aortic aneurysm or dissection. No pericardial or pleural effusion. There is linear atelectasis or scarring along the mediastinum and both lower lobes around the area of the large hiatal hernia. The lungs are otherwise clear of infiltrate or consolidation. Large sliding hiatal hernia. Normal morphology of the adrenal glands. Included upper abdominal structures are unremarkable. No suspicious osteolytic or osteoblastic lesions. IMPRESSION: No evidence of pulmonary embolism or thoracic aortic aneurysm or dissection Large hiatal hernia Reviewed, dictated and finalized at Location A. Reviewed, dictated and finalized at location A. MACY INTAKE COORDINATOR IMPRESSION: No evidence of pulmonary embolism or thoracic aortic aneurysm or d issection Large hiatal hernia
--- NOTE | ~2024-08-08 | MR_ITS ---
MR brain/brain stem wo/w con Ordering provider: Bina Burrell MD History: 39 years Male with . seizure . Comparison: Technique: MRI brain was performed with and without contrast. 20 mL of MultiHance was given IV. FINDINGS: BONES: Normal. CRANIOCERVICAL JUNCTION: normal. PITUITARY: Normal. MAJOR INTRACRANIAL VESSELS: Normal flow void. OPTIC NERVES AND CRANIAL NERVES VII AND VIII COMPLEXES: Grossly normal. BRAIN PARENCHYMA AND CSF SPACES: C2 and FLAIR hyperintense signal areas seen in the right frontal lob e which is hypointense on T1 weighted images. The brainstem and cerebellum are normal. No acute or ch ronic intracranial hemorrhage. No extra axial fluid collections. Diffusion weighted and ADC mapping i mages reveal no recent ischemia. No midline shift or mass effect. No abnormal contrast enhancement. PARANASAL SINUSES: Bilateral Frontal sinus disease. Bilateral ethmoid and maxillary sinus disease. MASTOIDS: T2 hyperintense signal areas seen in the right middle ear. Clinical correlation advised. SUPERFICIAL/SURROUNDING SOFT TISSUES: Normal. IMPRESSION: 1. T2 and FLAIR hyperintense signal area in the right frontal lobe with no diffusion restriction. Th e differential include old infarct with encephalomalacia versus low-grade malignancy versus cerebriti s. Postictal changes is possible. Follow-up advised. 2. No abnormal enhancement. Reviewed, dictated and finalized at location A. NCIAL SERVICES REP IMPRESSION: 1. T2 and FLAIR hyperintense signal area in the right frontal lobe with no dif fusion restriction. The differential include old infarct with encephalomalacia versus low-grade malignancy versus cerebritis. Postictal changes is possible. F ollow-up advised. 2. No abnormal enhancement.
--- NOTE | ~2024-08-08 | US_ITS ---
EXAMINATION: US carotid duplex BI DATE: 08/09/2024 15:21 INDICATION: Syncope TECHNIQUE: Grayscale, color Doppler, and pulsed Doppler images of the cervical carotid arteries were obtained. The degree of vessel stenosis is placed in one of the following categories: normal, <50%, 5 0-69%, >=70% but less than near-occlusion, near-occlusion, or total occlusion. Note that percent sten osis relative to normal distal artery lumen diameter is indirectly measured from velocity measurement s as described by Roni, et al. Radiology 2003; 229:340-346. COMPARISON: None. FINDINGS: RIGHT: The right common carotid artery (CCA) peak systolic velocity (PSV) is 105.2 cm/s. The right internal carotid artery (ICA) PSV is 82.0 cm/s. The right ICA end-diastolic velocity (EDV) is 25.9 cm/s. The r ight ICA/CCA PSV ratio is 0.8. Grayscale and color Doppler images yield an estimate of 0% diameter re duction from plaque in the ICA. The external carotid artery (ECA) PSV is 80.8 cm/s. There is antegrad e flow in the right vertebral artery. LEFT: The left CCA PSV is 121.6 cm/s. The left ICA PSV is 95.2 cm/s. The left ICA EDV is 36.9 cm/s. The lef t ICA/CCA PSV ratio is 0.8. Grayscale and color Doppler images yield an estimate of 0% diameter reduc tion from plaque in the ICA. The ECA PSV is 56.7 cm/s. There is antegrade flow in the left vertebral artery. IMPRESSION: 1. No stenosis in the right internal carotid artery. 2. No stenosis in the left internal carotid artery. Reviewed, dictated and finalized at Location A. Reviewed, dictated and finalized at location A. TRUCK DRIVER [address]
[2024-08-08 23:53] VITALS: BP 108/88; PULSE 90; RESP 15; TEMP 36.6; O2SAT 97
[2024-08-09] VITALS (7 sets, daily range): BP systolic 114–131; BP diastolic 68–87; PULSE 65–106; RESP 16–18; TEMP 36.5–36.6; O2SAT 96–100; BMI 39.6
--- NOTE | 2024-08-09 | ECHO_ITS ---
Patient Info Name: Isiah Franco Age: 39 years : 1985 Gender: Male Ht: 71 in Wt: 284 lbs BSA: 2.59 m2 HR: 65 bpm BP: 114 / 73 mmHg Heart Rhythm: Sinus Rhythm Technical Quality: Good Exam Date: 08/09/2024 3:42 PM Exam Location: Echo Lab Exam Room: [facility] Patient Status: Outpatient Admit Date: 08/09/2024 Staff Ordering Physician: Bina Burrell MD Rubber Production Machine Operator: Felecia Almanza RDCS Attending Provider: Bina Burrell MD Exam Type: CA echo doppler color flow Study Info Complete two-dimensional, color flow and Doppler transthoracic echocardiogram is performed. Summary 1. Complete two-dimensional, color flow and Doppler transthoracic echocardiogram is performed. 2. Left ventricular chamber dimension is normal. 3. Left ventricular systolic function is normal, estimated at 65-70%. 4. There is mildly increased left ventricular wall thickness. 5. The left ventricular diastolic function is grade I diastolic dysfunction. 6. Left atrial chamber dimension is mildly enlarged. 7. There is mild mitral valve regurgitation. 8. There is mild pulmonic regurgitation. Left Ventricle Left ventricular chamber dimension is normal. Left ventricular systolic function is normal, estimated at 65-70%. There is mildly increased left ventricular wall thickness. The left ventricular diastolic function is grade I diastolic dysfunction. Right Ventricle Right ventricular chamber dimension is normal. Right ventricular systolic function is normal. Left Atria Left atrial chamber dimension is mildly enlarged. Right Atria Right atrial chamber dimension is normal. Atrial Septum Intact interatrial septum visualized by color flow imaging. Aortic Valve The aortic valve is trileaflet. There is mild aortic valve sclerosis. There is no aortic valve stenosis. There is trace aortic valve regurgitation. Pulmonic Valve The pulmonic valve is normal. There is no pulmonic valve stenosis. There is mild pulmonic regurgitation. Mitral Valve The mitral valve has normal leaflets. There is no mitral valve stenosis. There is mild mitral valve regurgitation. Tricuspid Valve The tricuspid valve leaflets are normal. There is no significant tricuspid valve stenosis. There is trace tricuspid valve regurgitation. Pericardium/Pleural The pericardium appears normal. There is trivial pericardial effusion. Inferior Vena Cava Normal inferior vena cava with >50% collapse upon inspiration consistent with normal right atrial pressure, 5 mmHg. Aorta The aortic root size at the sinus of Valsalva is normal. Left Ventricular Outflow Tract Name Value Normal LVOT 2D LVOT Diameter 2.4 cm LVOT Doppler LVOT Peak Gradient 7 mmHg LVOT Mean Gradient 4 mmHg LVOT VTI 25 cm LVOT VTI/AV VTI Ratio 0.8 LVOT Stroke Volume 114 ml LVOT CO 8.5 l/min LVOT CI 3.3 l/min/m2 Pulmonic Valve Name Value Normal PV Doppler PV Peak Gradient 4 mmHg Mitral Valve Name Value Normal MV Doppler MV Peak Gradient 5 mmHg MV Mean Gradient 2 mmHg MV Decel Stonewall 513 cm/s2 MV PHT 47 ms MV Area (PHT) 4.7 cm2 4.0-5.0 MV Area (Cont Eq VTI) 4.2 cm2 MV Diastolic Function MV E Peak Velocity 83 cm/s MV A Peak Velocity 109 cm/s MV E/A 0.8 MV Decel Time 163 ms MV Annular TDI MV E/e' (Septal) 13.9 <=8.0 MV E/e' (Lateral) 6.7 <=8.0 MV E/e' (Average) 10.3 Tricuspid Valve Name Value Normal Estimated PAP/RSVP RA Pressure 5 mmHg <=5 Aortic Valve Name Value Normal AV Doppler AV Peak Velocity 163 cm/s AV Peak Gradient 11 mmHg AV Mean Gradient 7 mmHg AV VTI 31 cm AV Area (Cont Eq VTI) 3.7 cm2 >=3.0 AV Area (Cont Eq Camron) 4.0 cm2 AV Regurgitation 2D LVOT Area 4.5 cm2 Ventricles Name Value Normal LV Dimensions 2D/MM IVS Diastolic Thickness (2D) 1.0 cm 0.6-1.0 LVID Diastole (2D) 5.0 cm 4.2-5.8 LVIW Diastolic Thickness (2D) 0.9 cm 0.6-1.0 LVID Systole (2D) 3.6 cm 2.5-4.0 LVOT Diameter 2.4 cm LV Mass (2D Cubed) 165.89 g 88.00-224.00 LV Mass Index (2D Cubed) 64 g/m2 49-115 Relative Wall Thickness (2D) 0.35 LV Fractional Shortening/Ejection Fraction 2D/MM LV Fractional Shortening (2D) 28 % 25-43 LV EF (2D Teicholz) 54 % 52-72 LV Diastolic Volume (4C MOD) 172 ml LV EF (4C MOD) 62 % LV Diastolic Length (4C) 9.0 cm LV Systolic Length (4C) 7.5 cm LV Stroke Volume (4C MOD) 107 ml Atria Name Value Normal RA Dimensions RA Area (4C) 17.1 cm2 <=18.0 Report Signatures
--- NOTE | 2024-08-09 00:03 | ECG_ITS ---
Test Date: 2024-08-09 00:03:33 Measurements Intervals [place] Rate: 90 P: 20 SC: 156 QRS: 15 QRSD: 114 T: 41 QT: 361 QTc: 444 Interpretive Statements SINUS RHYTHM MODERATE INTRAVENTRICULAR CONDUCTION DELAY [110+ ms QRS DURATION] ABNORMAL ECG No previous ECG available for comparison Electronically Signed On 08-09-2024 10:48:14 [employer] by Juanjose Peterson M.D.
--- NOTE | 2024-08-09 04:22 | ED.GENADULT ---
HPI - General Adult General Chief complaint: Syncope Stated complaint: syncope Time Seen by Provider: 08/09/24 04:01 History of Present Illness HPI narrative: 39-year-old male presenting to the emergency department for evaluation after having a syncopal episode. Patient reports he was sitting on the couch when he had onset of a syncopal episode. states that the patient became unresponsive tilted his head to the left and had gurgling respirations sounds, family called 911. While by a white was on the phone with 911 patient became more responsive. Patient was diaphoretic and mildly confused but did not describe a postictal. Patient did not bite his tongue and patient had no loss of bowel or bladder control. Patient did have a prior history of syncope secondary to anemia which was secondary to a GI bleed. Patient reports that he does have bowel hernia and history of ulcers. Patient does take his Protonix. Denies any active blood in his stool Patient states that was a normal day today any was able to go to work. He did not feel bad until just prior to the syncopal episode. Related Data Home Medications ?Medication ?Instructions ?Recorded ?Confirmed ?Last Taken ?Type chlorthalidone 25 mg tablet 25 mg PO DAILY@1700 08/09/24 08/09/24 Unknown History iron,carbonyl 65 mg-vitamin C 125 1 tablet PO DAILY 08/09/24 08/09/24 Unknown History mg tablet,delayed release (Vitron-C) lisinopril 5 mg tablet 10 mg PO DAILY@1700 08/09/24 08/09/24 Unknown History Allergies Allergy/AdvReac Type Severity Reaction Status Date / Time No Known Allergies Allergy Mild Verified 08/09/24 12:23 Review of Systems Review of Systems: All systems reviewed & are unremarkable except as noted in HPI and below PMFSH Past Medical History Medical History (Updated 08/09/24 @ 18:05 by Suleman Pena MD) Loss of consciousness 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 He lives with his significant other. He has 2 sons. He does not have a durable power workers compensation attorney for healthcare. He drinks socially. He works at [employer]. He does not use any marijuana or illicit drugs. Code status full code Smoking status: Never smoker Alcohol intake: current Drinks per week: 2 Substance use: current Substance use type: marijuana Do You Feel Safe in your Home?: Yes Lack of Transportation: No Lack of Food: Never True Current Housing: I Have Housing Concerned About Future Housing: No Difficulty Paying Gas/Electric Bills: No Difficulty Paying for Meds: No Currently Unemployed: No Education: High School Diploma/GED Difficulty w/ Childcare or Family Care: No Spiritual care concerns: No Exam Narrative: APPEARANCE: Well appearing, no pain, no distress, well-nourished. HEAD: normocephalic, atraumatic. EYES: PERRLA/EOMI, conjunctivae clear. NOSE: Normal no drainage EARS:TMS clear with good light reflex. THROAT: Pharynx clear, no exudate. NECK: Supple. No adenopathy, no masses. RESPIRATORY: Airway patent, respirations nonlabored. Clear to auscultation bilaterally, no rales, rhonchi, wheezing. CARDIOVASCULAR: Regular rate and rhythm without murmurs rubs or gallops. ABDOMINAL: Soft, nontender, nondistended, normal bowel sounds MUSCULOSKELETAL: Moves all extremities. Strength/ROM intact, No edema, No calf tenderness. NEURO: Alert. Cranial nerves II through XII intact. Grossly intact SKIN: Warm, dry. Normal Color Course Vital Signs Vital signs: Vital Signs Temperature 97.8 F 08/08/24 23:53 Pulse Rate 90 08/08/24 23:53 Respiratory Rate 15 08/08/24 23:53 Blood Pressure 108/88 08/08/24 23:53 Pulse Oximetry 97 08/08/24 23:53 Temperature 97.6 F 08/10/24 06:34 Pulse Rate 69 08/10/24 06:34 Respiratory Rate 16 08/10/24 06:34 Blood Pressure 122/75 08/10/24 06:34 Pulse Oximetry 98 08/10/24 06:34 Oxygen Delivery Room Air 08/09/24 20:00 Medical Decision Making MDM Narrative Medical decision making narrative: 39-year-old male presenting to the emergency department for evaluation for having a prolonged syncopal episode while at rest. Patient is afebrile but does have a leukocytosis of 13.2 and hemoglobin of 13.1. Patient does have a history of anemia and this is higher than his typical baseline. CMP TSH and Mag are still pending. At of disposition CTA for PE was pending Differential Diagnosis Differential Diagnosis: Cardiac arrhythmia, syncope, orthostatic hypotension Vital Signs Vital Signs: Vital Signs Temperature 97.8 F 08/08/24 23:53 Pulse Rate 90 08/08/24 23:53 Respiratory Rate 15 08/08/24 23:53 Blood Pressure 108/88 08/08/24 23:53 Pulse Oximetry 97 08/08/24 23:53 Temperature 97.6 F 08/10/24 06:34 Pulse Rate 69 08/10/24 06:34 Respiratory Rate 16 08/10/24 06:34 Blood Pressure 122/75 08/10/24 06:34 Pulse Oximetry 98 08/10/24 06:34 Oxygen Delivery Room Air 08/09/24 20:00 Lab Data 08/10/24 05:19 08/10/24 05:20 Labs: Lab Results 08/09/24 08/09/24 08/09/24 Range/Units 04:50 04:50 04:50 WBC 13.2 H (4.5-10.0) K/mm3 RBC 5.24 (4.6-6.20) M/mm3 Hgb 13.1 L D (14.0-18.0) g/dL Hct 42.2 (42.0-52.0) % MCV 80.5 (80-100) fl MCH 25.0 L (26-34) pg MCHC 31.0 L (32-36) g/dl RDW 14.8 H (11.5-14.5) % Plt Count 365 (150-375) k/mm3 MPV 9.7 (7.4-10.4) fl Immature Gran % (Auto) 0.4 (0-0.5) % Neut % (Auto) 76.8 H (45.5-73.1) % Lymph % (Auto) 15.4 L (18.3-44.2) % [place] % (Auto) 5.0 (2.6-8.5) % Eos % (Auto) 1.6 (0-4.4) % Baso % (Auto) 0.8 (0.2-1.2) % Lymph # (Auto) 2.03 (0.9-3.2) K/mm3 [place] # (Auto) 0.7 H (0.1-0.6) K/mm3 Eos # (Auto) 0.2 (0-0.3) K/mm3 Baso # (Auto) 0.1 (0.0-0.1) K/mm3 Abs Immat Gran (auto) 0.05 H (0.00-0.031) K/mm3 Absolute Neuts (auto) 10.2 H (1.3-6.7) K/mm3 Absolute Nucleated RBC 0.000 (0.0-0.012) K/mm3 Nucleated RBC % 0.0 (0.0-0.2) % Sodium Cancelled 137 Potassium Cancelled 3.9 Chloride Cancelled Carbon Dioxide Anion Gap BUN Creatinine Estim Creat Clear Calc Estimated GFR Glucose Calcium Magnesium (1.6-2.3) mg/dL Total Bilirubin AST ALT Alkaline Phosphatase Troponin I (0.000-0.034) ng/mL Total Protein Albumin TSH (Reflex) (0.465-4.68) uIU/mL 08/09/24 08/09/24 08/09/24 Range/Units 04:50 04:50 04:50 WBC (4.5-10.0) K/mm3 RBC (4.6-6.20) M/mm3 Hgb (14.0-18.0) g/dL Hct (42.0-52.0) % MCV (80-100) fl MCH (26-34) pg MCHC (32-36) g/dl RDW (11.5-14.5) % Plt Count (150-375) k/mm3 MPV (7.4-10.4) fl Immature Gran % (Auto) (0-0.5) % Neut % (Auto) (45.5-73.1) % Lymph % (Auto) (18.3-44.2) % [place] % (Auto) (2.6-8.5) % Eos % (Auto) (0-4.4) % Baso % (Auto) (0.2-1.2) % Lymph # (Auto) (0.9-3.2) K/mm3 [place] # (Auto) (0.1-0.6) K/mm3 Eos # (Auto) (0-0.3) K/mm3 Baso # (Auto) (0.0-0.1) K/mm3 Abs Immat Gran (auto) (0.00-0.031) K/mm3 Absolute Neuts (auto) (1.3-6.7) K/mm3 Absolute Nucleated RBC (0.0-0.012) K/mm3 Nucleated RBC % (0.0-0.2) % Sodium Potassium Chloride 99 Carbon Dioxide Cancelled 26 Anion Gap Cancelled 12 BUN Cancelled Creatinine Estim Creat Clear Calc Estimated GFR Glucose Calcium Magnesium (1.6-2.3) mg/dL Total Bilirubin AST ALT Alkaline Phosphatase Troponin I (0.000-0.034) ng/mL Total Protein Albumin TSH (Reflex) (0.465-4.68) uIU/mL 08/09/24 08/09/24 08/09/24 Range/Units 04:50 04:50 04:50 WBC (4.5-10.0) K/mm3 RBC (4.6-6.20) M/mm3 Hgb (14.0-18.0) g/dL Hct (42.0-52.0) % MCV (80-100) fl MCH (26-34) pg MCHC (32-36) g/dl RDW (11.5-14.5) % Plt Count (150-375) k/mm3 MPV (7.4-10.4) fl Immature Gran % (Auto) (0-0.5) % Neut % (Auto) (45.5-73.1) % Lymph % (Auto) (18.3-44.2) % [place] % (Auto) (2.6-8.5) % Eos % (Auto) (0-4.4) % Baso % (Auto) (0.2-1.2) % Lymph # (Auto) (0.9-3.2) K/mm3 [place] # (Auto) (0.1-0.6) K/mm3 Eos # (Auto) (0-0.3) K/mm3 Baso # (Auto) (0.0-0.1) K/mm3 Abs Immat Gran (auto) (0.00-0.031) K/mm3 Absolute Neuts (auto) (1.3-6.7) K/mm3 Absolute Nucleated RBC (0.0-0.012) K/mm3 Nucleated RBC % (0.0-0.2) % Sodium Potassium Chloride Carbon Dioxide Anion Gap BUN 12 Creatinine Cancelled 0.82 Estim Creat Clear Calc Cancelled 145 Estimated GFR Cancelled Glucose Calcium Magnesium (1.6-2.3) mg/dL Total Bilirubin AST ALT Alkaline Phosphatase Troponin I (0.000-0.034) ng/mL Total Protein Albumin TSH (Reflex) (0.465-4.68) uIU/mL 08/09/24 08/09/24 08/09/24 Range/Units 04:50 04:50 04:50 WBC (4.5-10.0) K/mm3 RBC (4.6-6.20) M/mm3 Hgb (14.0-18.0) g/dL Hct (42.0-52.0) % MCV (80-100) fl MCH (26-34) pg MCHC (32-36) g/dl RDW (11.5-14.5) % Plt Count (150-375) k/mm3 MPV (7.4-10.4) fl Immature Gran % (Auto) (0-0.5) % Neut % (Auto) (45.5-73.1) % Lymph % (Auto) (18.3-44.2) % [place] % (Auto) (2.6-8.5) % Eos % (Auto) (0-4.4) % Baso % (Auto) (0.2-1.2) % Lymph # (Auto) (0.9-3.2) K/mm3 [place] # (Auto) (0.1-0.6) K/mm3 Eos # (Auto) (0-0.3) K/mm3 Baso # (Auto) (0.0-0.1) K/mm3 Abs Immat Gran (auto) (0.00-0.031) K/mm3 Absolute Neuts (auto) (1.3-6.7) K/mm3 Absolute Nucleated RBC (0.0-0.012) K/mm3 Nucleated RBC % (0.0-0.2) % Sodium Potassium Chloride Carbon Dioxide Anion Gap BUN Creatinine Estim Creat Clear Calc Estimated GFR > 60 Glucose Cancelled 113 H Calcium Cancelled 9.7 Magnesium 2.1 (1.6-2.3) mg/dL Total Bilirubin Cancelled AST ALT Alkaline Phosphatase Troponin I (0.000-0.034) ng/mL Total Protein Albumin TSH (Reflex) (0.465-4.68) uIU/mL 08/09/24 08/09/24 08/09/24 Range/Units 04:50 04:50 04:50 WBC (4.5-10.0) K/mm3 RBC (4.6-6.20) M/mm3 Hgb (14.0-18.0) g/dL Hct (42.0-52.0) % MCV (80-100) fl MCH (26-34) pg MCHC (32-36) g/dl RDW (11.5-14.5) % Plt Count (150-375) k/mm3 MPV (7.4-10.4) fl Immature Gran % (Auto) (0-0.5) % Neut % (Auto) (45.5-73.1) % Lymph % (Auto) (18.3-44.2) % [place] % (Auto) (2.6-8.5) % Eos % (Auto) (0-4.4) % Baso % (Auto) (0.2-1.2) % Lymph # (Auto) (0.9-3.2) K/mm3 [place] # (Auto) (0.1-0.6) K/mm3 Eos # (Auto) (0-0.3) K/mm3 Baso # (Auto) (0.0-0.1) K/mm3 Abs Immat Gran (auto) (0.00-0.031) K/mm3 Absolute Neuts (auto) (1.3-6.7) K/mm3 Absolute Nucleated RBC (0.0-0.012) K/mm3 Nucleated RBC % (0.0-0.2) % Sodium Potassium Chloride Carbon Dioxide Anion Gap BUN Creatinine Estim Creat Clear Calc Estimated GFR Glucose Calcium Magnesium (1.6-2.3) mg/dL Total Bilirubin 0.7 AST Cancelled 23 ALT Cancelled 41 Alkaline Phosphatase Cancelled Troponin I (0.000-0.034) ng/mL Total Protein Albumin TSH (Reflex) (0.465-4.68) uIU/mL 08/09/24 08/09/24 08/09/24 Range/Units 04:50 04:50 04:50 WBC (4.5-10.0) K/mm3 RBC (4.6-6.20) M/mm3 Hgb (14.0-18.0) g/dL Hct (42.0-52.0) % MCV (80-100) fl MCH (26-34) pg MCHC (32-36) g/dl RDW (11.5-14.5) % Plt Count (150-375) k/mm3 MPV (7.4-10.4) fl Immature Gran % (Auto) (0-0.5) % Neut % (Auto) (45.5-73.1) % Lymph % (Auto) (18.3-44.2) % [place] % (Auto) (2.6-8.5) % Eos % (Auto) (0-4.4) % Baso % (Auto) (0.2-1.2) % Lymph # (Auto) (0.9-3.2) K/mm3 [place] # (Auto) (0.1-0.6) K/mm3 Eos # (Auto) (0-0.3) K/mm3 Baso # (Auto) (0.0-0.1) K/mm3 Abs Immat Gran (auto) (0.00-0.031) K/mm3 Absolute Neuts (auto) (1.3-6.7) K/mm3 Absolute Nucleated RBC (0.0-0.012) K/mm3 Nucleated RBC % (0.0-0.2) % Sodium Potassium Chloride Carbon Dioxide Anion Gap BUN Creatinine Estim Creat Clear Calc Estimated GFR Glucose Calcium Magnesium (1.6-2.3) mg/dL Total Bilirubin AST ALT Alkaline Phosphatase 83 Troponin I < 0.012 (0.000-0.034) ng/mL Total Protein Cancelled 7.0 Albumin Cancelled 4.1 TSH (Reflex) 0.619 (0.465-4.68) uIU/mL Discharge Plan Discharge Clinical Impression: Syncope Patient Disposition: Still a Patient Condition: Serious
[2024-08-09 04:56] LABS: Basophils Absolute Auto 0.1 K/mm3 (0.0-0.1); Basophils Percent Auto 0.8 % (0.2-1.2); Eosinophils Absolute Auto 0.2 K/mm3 (0-0.3); Eosinophils Percent Auto 1.6 % (0-4.4); Hematocrit 42.2 % (42.0-52.0); Hemoglobin 13.1 g/dL (14.0-18.0); Immature Granulocyte Absolute 0.05 K/mm3 (0.00-0.031); Immature Granulocyte Percent A 0.4 % (0-0.5); Lymphocytes Absolute Auto 2.03 K/mm3 (0.9-3.2); Lymphocytes Percent Auto 15.4 % (18.3-44.2); Mean Corpuscular Volume 80.5 fl (80-100); Mean Platelet Volume 9.7 fl (7.4-10.4); Monocytes Absolute Auto 0.7 K/mm3 (0.1-0.6); Neutrophils Absolute Auto 10.2 K/mm3 (1.3-6.7); Neutrophils Percent Auto 76.8 % (45.5-73.1); Platelet Count Result 365 k/mm3 (150-375); Red Blood Count 5.24 M/mm3 (4.6-6.20); Red Cell Distribution Width 14.8 % (11.5-14.5); White Blood Count 13.2 K/mm3 (4.5-10.0)
[2024-08-09 06:47] LABS: Alanine Aminotransferase 41 U/L (6-50); Albumin Level 4.1 g/dL (3.5-5.1); Alkaline Phosphatase 83 U/L (38-126); Anion Gap 12 mmol/L (4-12); Aspartate Amino Transferase 23 U/L (17-59); Bilirubin,Total 0.7 mg/dL (0.2-1.3); Blood Urea Nitrogen 12 mg/dL (9-20); Calcium 9.7 mg/dL (8.4-10.2); Carbon Dioxide 26 mmol/L (22-30); Chloride 99 mmol/L (98-107); Estimated CRCL calculation 145 ml/min; Estimated Glomerular Filt Rate > 60; Glucose 113 mg/dL (65-110); Magnesium 2.1 mg/dL (1.6-2.3); Potassium 3.9 mmol/L (3.4-5.0); Sodium 137 mmol/L (137-145)
[2024-08-09 07:00] LABS: Thyroid Stimulating Hormone Reflex 0.619 uIU/mL (0.465-4.68)
[2024-08-09 08:08] LABS: Troponin I < 0.012 ng/mL (0.000-0.034)
--- NOTE | 2024-08-09 12:00 | ADMGEN ---
This patient, Isiah Franco, was admitted to Medical Room 258-. Patient/family oriented to hospital policies and general routines including ID bracelet, bed and alarms, visiting hours, pain management, procedures, bathroom and other care routines, personal items, smoking policy, room service/diet, and visiting hours. Information on how to activate the Rapid Response Team has been discussed. Patient/Family are encouraged to report perceived risks to care and to ask questions if they do not understand what they are told or what they should do.
--- NOTE | 2024-08-09 13:50 | P.HP_ITS ---
H&P: HPI History of Present Illness Date/Time: 08/09/24 13:51 Chief Complaint: Loss of consciousness Narrative: 39-year-old male past medical history of hypertension peptic ulcer disease who presented to the ER on account of loss of consciousness. was present at the bedside, and both noted the patient walked to the kitchen for drink and by the time he came back and sat back on the couch he passed out for about 30 seconds, noted that patient was having seizure-like activity. Noted a mild brief confusion when the patient came to. Patient reported that he had diarrhea and vomiting for about 2 days from the 30 of July. Otherwise currently denies any chest pain shortness over no nausea no vomiting abdominal pain no diarrhea no dysuria no focal symptoms. He was brought to ER by EMS. ER evaluation temperature 98?, pulse rate 87, respiratory 16, saturating 100% on room air, blood pressure 146/79. Left above for WBC 13.2, troponin negative, creatinine within normal limits. TSH normal. CTA chest no PE or thoracic aortic aneurysm but showed a large hiatal hernia. Patient was admitted for further evaluation and care. Review of Systems 2 Review of Systems: All other systems were reviewed and negative except as noted in HPI above. [facility] Past Medical History Medical History Abnormal CT scan, colon Diarrhea Diverticulosis Iron deficiency anemia Leukocytosis Occult blood in stools Salmonellosis Surgical History Surgical History History of tonsillectomy Family History Family History (Updated 08/09/24 @ 12:30 by Gold Guo RN) Father Chronic obstructive pulmonary disease Hypertension Asthma Mother Hypertension Other Epilepsy Social History Social History Social History: The patient is lifelong nonsmoker. He lives with his significant other. He has 2 sons. He does not have a durable power trust and estates attorney for healthcare. He drinks socially. He works at [employer]. He does not use any marijuana or illicit drugs. Code status full code Smoking status: Never smoker Alcohol intake: current Drinks per week: 2 Substance use: current Substance use type: marijuana Do You Feel Safe in your Home?: Yes Lack of Transportation: No Lack of Food: Never True Current Housing: I Have Housing Concerned About Future Housing: No Difficulty Paying Gas/Electric Bills: No Difficulty Paying for Meds: No Currently Unemployed: No Education: High School Diploma/GED Difficulty w/ Childcare or Family Care: No Spiritual care concerns: No Meds Home Medications and Allergies Home Medications ?Medication ?Instructions ?Recorded ?Confirmed ?Type chlorthalidone 25 mg tablet 25 mg PO DAILY@1700 08/09/24 08/09/24 History iron,carbonyl 65 mg-vitamin C 125 1 tablet PO DAILY 08/09/24 08/09/24 History mg tablet,delayed release (Vitron-C) lisinopril 5 mg tablet 10 mg PO DAILY@1700 08/09/24 08/09/24 History Allergies Allergy/AdvReac Type Severity Reaction Status Date / Time No Known Allergies Allergy Mild Verified 08/09/24 12:23 Vital Signs Vital Signs - 24 hr 08/08/24 23:53 08/09/24 07:36 08/09/24 10:11 Temperature 97.8 F Pulse Rate 90 72 66 Respiratory Rate 15 18 17 Blood Pressure 108/88 131/87 114/79 Pulse Oximetry 97 99 98 Oxygen Delivery 08/09/24 10:15 08/09/24 13:10 Temperature Pulse Rate 69 Respiratory Rate Blood Pressure Pulse Oximetry Oxygen Delivery Room Air Exam Narrative: General: alert and comfortable Eyes: EOMI, PERRLA ENNT External ears normal, Neck is supple, no masses, Respiratory systems: Clear to auscultation Cardiovascular S1, S2, normal rhythm, no murmur, rub, or gallop; no thrill or palpable murmurs on palpation. Gastrointestinal: soft, non-tender, and non-distended abdomen with no masses; BS present Skin: no rash, lesions, ulcerations, subcutaneous nodules or induration Musculoskeletal: no abnormality and no tenderness, normal ROM Neurologic: Alert and oriented x3, non focal Mental Status Exam: normal affect H&P: Results Labs Labs: Short CBC 08/09/24 Range/Units 04:50 WBC 13.2 H (4.5-10.0) K/mm3 Hgb 13.1 L D (14.0-18.0) g/dL Hct 42.2 (42.0-52.0) % Plt Count 365 (150-375) k/mm3 BMP 08/09/24 08/09/24 08/09/24 04:50 04:50 04:50 Sodium Cancelled 137 Potassium Cancelled 3.9 Chloride Cancelled Carbon Dioxide BUN Creatinine Glucose Calcium 08/09/24 08/09/24 08/09/24 04:50 04:50 04:50 Sodium Potassium Chloride 99 Carbon Dioxide Cancelled 26 BUN Cancelled 12 Creatinine Cancelled Glucose Calcium 08/09/24 08/09/24 08/09/24 04:50 04:50 04:50 Sodium Potassium Chloride Carbon Dioxide BUN Creatinine 0.82 Glucose Cancelled 113 H Calcium Cancelled 9.7 Cardiac Enzymes 08/09/24 Range/Units 04:50 Troponin I < 0.012 (0.000-0.034) ng/mL Liver Function 08/09/24 08/09/24 08/09/24 Range/Units 04:50 04:50 04:50 Total Bilirubin Cancelled 0.7 AST Cancelled 23 ALT Cancelled Alkaline Phosphatase Albumin 08/09/24 08/09/24 08/09/24 Range/Units 04:50 04:50 04:50 Total Bilirubin AST ALT 41 Alkaline Phosphatase Cancelled 83 Albumin Cancelled 4.1 Assessment and Plan Assessment and plan (1) Syncope: Code(s): R55 - Syncope and collapse Status: Acute Plan Convulsive syncope versus seizure Patient passed out with seizure-like activity. Orthostatic vital signs, echo, MRI brain, EEG, carotid duplex Troponin negative, EKG no acute changes. CTA chest no acute changes. Neurology consult today. Monitor on telemetry PT/OT Hypertension Titrate home medications with clinical course. History of PUD Continue home medications. DVT prophylaxis subQ Lovenox Full code Surrogate decisionmaker is Keara Franco [facility] Advance Care Plan I have confirmed that the patient's Advanced Care Plan is present, code status is documented, or surrogate decision maker is listed in patient medical record.: Yes Medication Reconciliation I have utilized all available resources to obtain, update and review the patients current medications (includes all prescriptions, OTC, herbals, cannabis, and nutritional supplements).: Yes
--- NOTE | 2024-08-09 17:58 | P.CONNEU_ITS ---
Assessment and Plan Assessment and plan (1) Loss of consciousness: Code(s): R40.20 - Unspecified coma Status: Acute Assessment and Plan: given the finding on the MRI of the brain this would be suspicious of a seizure event. Two years ago when he had a GI bleed he who had a spell but he did not have any workup and hence we cannot compare with previous studies. (2) Lesion of right frontal lobe of brain: Code(s): G93.9 - Disorder of brain, unspecified Status: Acute Assessment and Plan: The lesion in the right frontal area does not show up on the DWI sequence and does not enhance with the contrast and hence the possibility of an old scar versus lobe malignancy is considered and merits further looking into by a neuro surgical services and probably follow-up or if necessary biopsy. 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 and interested in trying to arrange transfer over there. I did not put him on any anticonvulsants at this time. Consult date: 08/09/24 HPI: Isiah Franco is a 39 year old male presented to the hospital with a passing out spell witnessed by his . He was sitting on the couch when he had onset of spell where he became unresponsive and tilted head to the left side and they heard a gurgling sound. Family called 911 and phone is started become responsive. Two years ago he had a similar a spell when he has GI bleed. However he did not have a neurologic workup done at that time. Patient denies any. He denies any warning prior to the onset of above symptoms. Upon questioning he denies any recent febrile illness or head trauma. He has been in usual state of health. 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 The patient has history of for anemia and hiatus hernia and is on Protonix. Review of Systems 2 Constitutional: Constitutional: Denies chills, Denies fever(s) and Denies weight loss Eyes: Eyes: Denies diplopia and Denies loss of vision ENT: Denies dizziness, Denies hearing loss and Denies tinnitus Cardiovascular: Cardiovascular: Denies chest pain, Denies syncope and Denies dyspnea Respiratory: Respiratory: Denies cough, Denies dyspnea and Denies wheezing Gastrointestinal: Gastrointestinal: Denies abdominal pain, Denies change in bowel habits and Denies vomiting Genitourinary: Genitourinary: Denies urinary incontinence Musculoskeletal: Musculoskeletal: Denies arthralgias and Denies joint swelling Integumentary/Breasts: Skin/Breast: Denies new lesions and Denies rash Neurologic: Reports as per HPI, Denies dizziness, Denies syncope and Denies loss of vision Psychiatric: Psychiatric: Denies anxiety and Denies depression Endocrine: Endocrine: Denies cold intolerance and Denies heat intolerance Hematologic/Lymphatic: Hematologic/Lymphatic: Denies easy bleeding and Denies easy bruising Allergic/Immunologic: Allergic/Immunologic: Denies no additional allergic/immunologic complaints and Denies wheezing PMFSH Past Medical History Medical History (Updated 08/09/24 @ 18:05 by Suleman Pena MD) Loss of consciousness 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 He lives with his significant other. He has 2 sons. He does not have a durable power senior trial attorney for healthcare. He drinks socially. He works at [employer] and [employer]. He does not use any marijuana or illicit drugs. Code status full code Smoking status: Never smoker Alcohol intake: current Drinks per week: 2 Substance use: current Substance use type: marijuana Do You Feel Safe in your Home?: Yes Lack of Transportation: No Lack of Food: Never True Current Housing: I Have Housing Concerned About Future Housing: No Difficulty Paying Gas/Electric Bills: No Difficulty Paying for Meds: No Currently Unemployed: No Education: High School Diploma/GED Difficulty w/ Childcare or Family Care: No Spiritual care concerns: No Meds Home Medications and Allergies Home Medications ?Medication ?Instructions ?Recorded ?Confirmed ?Type chlorthalidone 25 mg tablet 25 mg PO DAILY@1700 08/09/24 08/09/24 History iron,carbonyl 65 mg-vitamin C 125 1 tablet PO DAILY 08/09/24 08/09/24 History mg tablet,delayed release (Vitron-C) lisinopril 5 mg tablet 10 mg PO DAILY@1700 08/09/24 08/09/24 History Allergies Allergy/AdvReac Type Severity Reaction Status Date / Time No Known Allergies Allergy Mild Verified 08/09/24 12:23 Vital Signs Vital Signs - 24 hr 08/08/24 23:53 08/09/24 07:36 08/09/24 10:11 Temperature 97.8 F Pulse Rate 90 72 66 Respiratory Rate 15 18 17 Blood Pressure 108/88 131/87 114/79 Pulse Oximetry 97 99 98 Oxygen Delivery 08/09/24 10:15 08/09/24 13:10 08/09/24 14:00 Temperature 97.8 F Pulse Rate 69 65 Respiratory Rate 16 Blood Pressure 114/73 Pulse Oximetry 100 Oxygen Delivery Room Air 08/09/24 16:00 Temperature Pulse Rate 106 H Respiratory Rate Blood Pressure Pulse Oximetry Oxygen Delivery Exam 2 Const: General: no acute distress Orientation/consciousness: oriented to person, oriented to place and oriented to time HENMT: Head: normocephalic and atraumatic Ears: hearing grossly normal bilaterally and external ears normal Face/Nose/Sinus: Normal external nose present Mouth: Yes Normal oral and palatal mucosa present Eyes: General: appearance normal, both eyes and all related structures E yelids: eyelids normal Conjunctivae: conjunctivae normal Pupils: Equal, round and reactive pupils present EOM: No Nystagmus present Neck: Neck: normal visual inspection Resp: Effort & Inspection: normal respiratory effort Skin: General skin exam: normal color and no rashes or lesions noted Neuro: General: oriented to person, oriented to place and oriented to time Cranial nerves: Yes CN's II-XII intact bilaterally, Yes Equal, round and reactive pupils present, Yes Bilaterally intact EOM present, Yes Nystagmus not present, Yes Normal facial strength present, Yes facial symmetry, Yes Midline tongue present, Yes Symmetric palate elevation present, Yes Normal hearing present, Yes Ability to bilaterally elevate shoulders present and No Nystagmus present Speech: normal speech Gait exam (Neuro): Normal gait present M otor exam (neuro): 5/5 motor strength present throughout, Normal motor muscle tone present throughout and Motor abnormalities not present Sensory Exam: n ormal sensation Deep tendon reflexes (DTR's): Right triceps reflex intensity grade: 1+, Left triceps reflex intensity grade: 1+, Rt Biceps (C5, C6): 1+, Left biceps reflex intensity grade: 1+, Right brachioradialis reflex intensity grade: 1+, Left brachioradialis reflex intensity grade: 1+, Right patellar reflex intensity grade: 1+, Left patellar reflex intensity grade: 1+, Right ankle reflex intensity grade: 1+ and Left ankle reflex intensity grade: 1+ C oordination: [id number] test normal, tandem gait normal and Romberg test negative Extrem: General: normal to inspection Psych: Appearance: grossly normal Mental Status: mental status grossly normal Affect: normal affect Attitude: cooperative Results Labs 08/09/24 04:50 08/09/24 04:50 Labs: Short CBC 08/09/24 Range/Units 04:50 WBC 13.2 H (4.5-10.0) K/mm3 Hgb 13.1 L D (14.0-18.0) g/dL Hct 42.2 (42.0-52.0) % Plt Count 365 (150-375) k/mm3 BMP 08/09/24 08/09/24 08/09/24 04:50 04:50 04:50 Sodium Cancelled 137 Potassium Cancelled 3.9 Chloride Cancelled Carbon Dioxide BUN Creatinine Glucose Calcium 08/09/24 08/09/24 08/09/24 04:50 04:50 04:50 Sodium Potassium Chloride 99 Carbon Dioxide Cancelled 26 BUN Cancelled 12 Creatinine Cancelled Glucose Calcium 08/09/24 08/09/24 08/09/24 04:50 04:50 04:50 Sodium Potassium Chloride Carbon Dioxide BUN Creatinine 0.82 Glucose Cancelled 113 H Calcium Cancelled 9.7 Cardiac Enzymes 08/09/24 Range/Units 04:50 Troponin I < 0.012 (0.000-0.034) ng/mL Liver Function 08/09/24 08/09/24 08/09/24 Range/Units 04:50 04:50 04:50 Total Bilirubin Cancelled 0.7 AST Cancelled 23 ALT Cancelled Alkaline Phosphatase Albumin 08/09/24 08/09/24 08/09/24 Range/Units 04:50 04:50 04:50 Total Bilirubin AST ALT 41 Alkaline Phosphatase Cancelled 83 Albumin Cancelled 4.1
[2024-08-10] VITALS: PULSE 72
[2024-08-10 04:00] VITALS: PULSE 92
[2024-08-10 05:54] LABS: Basophils Absolute Auto 0.1 K/mm3 (0.0-0.1); Basophils Percent Auto 1.2 % (0.2-1.2); Eosinophils Absolute Auto 0.6 K/mm3 (0-0.3); Eosinophils Percent Auto 6.7 % (0-4.4); Hematocrit 41.3 % (42.0-52.0); Hemoglobin 12.6 g/dL (14.0-18.0); Immature Granulocyte Absolute 0.03 K/mm3 (0.00-0.031); Immature Granulocyte Percent A 0.4 % (0-0.5); Lymphocytes Absolute Auto 2.32 K/mm3 (0.9-3.2); Lymphocytes Percent Auto 27.4 % (18.3-44.2); Mean Corpuscular HGB Conc 30.5 g/dl (32-36); Mean Corpuscular Hemoglobin 24.5 pg (26-34); Mean Corpuscular Volume 80.4 fl (80-100); Monocytes Absolute Auto 0.8 K/mm3 (0.1-0.6); Monocytes Percent Auto 9.3 % (2.6-8.5); Neutrophils Absolute Auto 4.7 K/mm3 (1.3-6.7); Platelet Count Result 321 k/mm3 (150-375); Red Blood Count 5.14 M/mm3 (4.6-6.20); Red Cell Distribution Width 14.9 % (11.5-14.5); White Blood Count 8.5 K/mm3 (4.5-10.0)
[2024-08-10 06:04] LABS: Alanine Aminotransferase 31 U/L (6-50); Albumin Level 3.6 g/dL (3.5-5.1); Alkaline Phosphatase 73 U/L (38-126); Anion Gap 6 mmol/L (4-12); Aspartate Amino Transferase 19 U/L (17-59); Bilirubin,Total 0.8 mg/dL (0.2-1.3); Blood Urea Nitrogen 11 mg/dL (9-20); Calcium 8.8 mg/dL (8.4-10.2); Carbon Dioxide 29 mmol/L (22-30); Chloride 101 mmol/L (98-107); Estimated CRCL calculation 159 ml/min; Estimated Glomerular Filt Rate > 60; Glucose 104 mg/dL (65-110); Magnesium 2.2 mg/dL (1.6-2.3); Potassium 3.3 mmol/L (3.4-5.0); Sodium 136 mmol/L (137-145)
[2024-08-10 06:07] LABS: Lactic Acid Reflex 0.9 mmol/L (0.7-2.0)
[2024-08-10 06:34] VITALS: BP 122/75; PULSE 69; RESP 16; TEMP 36.4; O2SAT 98
--- NOTE | 2024-08-10 09:00 | PM.TDS ---
Transfer Discharge Sum: Prov Provider Date of admission: 08/09/24 08:27 Primary care physician: DOT [facility] PHYSICIAN Admitting clinician: Bina Burrell MD Consults: 08/09/24 Consult to Physician Routine Comment: Consulting Provider: Suleman Pena manufacturing advisor/ group to consult: neurology Reason for consultation: ?Seizure Has provider been notified: Yes DS: Admitting Diagnosis Discharge Date 08/10/24 Admitting Diagnosis Syncope DS: Discharge Diagnosis Discharge Diagnosis (1) Lesion of right frontal lobe of brain: Code(s): G93.9 - Disorder of brain, unspecified Status: Acute (2) Loss of consciousness: Code(s): R40.20 - Unspecified coma Status: Acute Transfer Discharge Sum: Med Medications Active and Home Medications: Home Medications chlorthalidone 25 mg tablet 25 mg PO DAILY@1700 08/09/24 [History Confirmed 08/09/24] iron,carbonyl 65 mg-vitamin C 125 mg tablet,delayed release (Vitron-C) 1 tablet PO DAILY 08/09/24 [History Confirmed 08/09/24] lisinopril 5 mg tablet 10 mg PO DAILY@1700 08/09/24 [History Confirmed 08/09/24] Transfer Discharge Sum: Hosp Hospital Course Hospital course: 39-year-old male past medical history of hypertension peptic ulcer disease who presented to the ER on account of loss of consciousness. was present at the bedside, and both noted the patient walked to the kitchen for drink and by the time he came back and sat back on the couch he passed out for about 30 seconds, noted that patient was having seizure-like activity. Noted a mild brief confusion when the patient came to. Patient reported that he had diarrhea and vomiting for about 2 days from the 30 of July. Otherwise currently denies any chest pain shortness over no nausea no vomiting abdominal pain no diarrhea no dysuria no focal symptoms. He was brought to ER by EMS. ER evaluation temperature 98?, pulse rate 87, respiratory 16, saturating 100% on room air, blood pressure 146/79. Left above for WBC 13.2, troponin negative, creatinine within normal limits. TSH normal. CTA chest no PE or thoracic aortic aneurysm but showed a large hiatal hernia. Patient was admitted for further evaluation and care. MRI brain, EEG, carotid duplex, and ECHO were ordered. Neurology was consulted. MRI showed brain lesion suspicious for Malignancy, Cerebritis vs remote stroke. Neurology evaluated and recommended transfer to higher level of care. Patient was transferred this morning to [facility] for neurosurgery evaluation and possible intervention. Time Spent with Patient Time attestation: Total time spent providing and/or coordinating transfer services: DS: Data Data Completed and Pending Labs on day of discharge: Labs from last 24 hours 08/10/24 08/10/24 05:20 05:19 WBC 8.5 RBC 5.14 Hgb 12.6 L Hct 41.3 L MCV 80.4 MCH 24.5 L MCHC 30.5 L RDW 14.9 H Plt Count 321 MPV 10.0 Immature Gran % (Auto) 0.4 Neut % (Auto) 55.0 Lymph % (Auto) 27.4 Camp % (Auto) 9.3 H Eos % (Auto) 6.7 H Baso % (Auto) 1.2 Lymph # (Auto) 2.32 Camp # (Auto) 0.8 H Eos # (Auto) 0.6 H Baso # (Auto) 0.1 Abs Immat Gran (auto) 0.03 Absolute Neuts (auto) 4.7 Absolute Nucleated RBC 0.000 Nucleated RBC % 0.0 Sodium 136 L Potassium 3.3 L Chloride 101 Carbon Dioxide 29 Anion Gap 6 BUN 11 Creatinine 0.73 Estim Creat Clear Calc 159 Estimated GFR > 60 Glucose 104 Lactic Acid 0.9 Calcium 8.8 Magnesium 2.2 Total Bilirubin 0.8 AST 19 ALT 31 Alkaline Phosphatase 73 Total Protein 7.0 Albumin 3.6 Additional Comments Additional comments: Patient was stable on transfer.
== END 2024-08-10 06:41 | disposition short-term general hospital (02) ==
LOC: ANHED 08-09 04:54 → ANH2MED 08-09 10:49
PROVIDERS: Emergency Medicine; Admitting Provider Internal Medicine; Emergency Provider Emergency Medicine; Visit Provider Internal Medicine
DX: R55 Syncope and collapse (principal); G93.9 Disorder of brain, unspecified; I10 Essential (primary) hypertension; Z87.11 Personal history of peptic ulcer disease; Z79.899 Other long term (current) drug therapy
CPT/HCPCS: 36415; 70553; 71046; 71275; 80053; 83605; 83735; 84443; 84484; 85025; 93005; 93306; 93880; 99285; A9577; G0378; Q9967